=== PATIENT | female | born 1945 | race Caucasian/White ===

== ENCOUNTER 2016-07-01 09:42 | Day surgery (SDC) | payer BC ==
[2016-07-01] MEDS ORDERED: TROPICAMIDE 1% OPHTH 2 ML DROPS OPTH ONE (10:00)
[2016-07-01] MEDS ORDERED: CYCLOPENTOLATE 1% OPHTH DROPS 2 ML OPTH ONE (10:00)
[2016-07-01] MEDS ORDERED: LIDOCAINE-MPF 2% 5 ML VIAL IM ONE (10:00)
[2016-07-01] MEDS ORDERED: KETOROLAC 0.45% OPHTH DROPS OPTH ONE (10:00)
[2016-07-01] MEDS ORDERED: MIDAZOLAM 2 MG/2 ML VIAL IVP ONE (10:00)
[2016-07-01] MEDS ORDERED: PROPOFOL 200 MG/20 ML VIAL IVP ONE (10:00)
[2016-07-01] MEDS ORDERED: LACTATED RINGERS 500 ML IV ONE (10:37)
[2016-07-01] MEDS ORDERED: levoFLOXacin 0.5% OPHTH DROPS 5 ML OPTH ONE (10:43)
[2016-07-01] MEDS ORDERED: PROPARACAINE 0.5% OPHTH DROPS 15 ML OPTH ONE (10:43)
[2016-07-01] MEDS ORDERED: BRIMONIDINE 0.2% OPHTH DROPS 5 ML OPTH ONE (10:43)
[2016-07-01] MEDS ORDERED: EPINEPHrine 1 MG/ML AMP IO ONE (10:43)
[2016-07-01] MEDS ORDERED: BSS/LIDOCAINE/EPINEPHRINE 1 ML SYRINGE IO ONE ×2 (10:43→10:48)
[2016-07-01] MEDS ORDERED: CHONDR SULF/HYALURONATE SYRINGE IO ONE (10:43)
== END 2016-07-01 09:43 | disposition home or self-care (01) ==
PROC: 08RJ3JZ Replacement of Right Lens with Synthetic Substitute, Percutaneous Approach (ICD-10-PCS; principal; 2016-07-01 10:50)
DX: H25.11 Age-related nuclear cataract, right eye (principal); J45.909 Unspecified asthma, uncomplicated; E11.9 Type 2 diabetes mellitus without complications; I10 Essential (primary) hypertension; Z86.718 Personal history of other venous thrombosis and embolism; F41.0 Panic disorder [episodic paroxysmal anxiety]
CPT/HCPCS: 66984; V2632; V2787

== ENCOUNTER 2016-08-05 06:14 | Day surgery (SDC) | payer BC ==
[2016-08-05] MEDS ORDERED: CYCLOPENTOLATE 1% OPHTH DROPS 2 ML OPTH ONE (06:40)
[2016-08-05] MEDS ORDERED: TROPICAMIDE 1% OPHTH 2 ML DROPS OPTH ONE (06:40)
[2016-08-05] MEDS ORDERED: KETOROLAC 0.45% OPHTH DROPS OPTH ONE (06:40)
[2016-08-05] MEDS ORDERED: LACTATED RINGERS 500 ML IV ONE (06:49)
[2016-08-05] MEDS ORDERED: MIDAZOLAM 2 MG/2 ML VIAL IVP ONE (07:40)
[2016-08-05] MEDS ORDERED: EPINEPHrine 1 MG/ML AMP IO ONE (07:53)
[2016-08-05] MEDS ORDERED: TETRACAINE 0.5% OPHTH DROPS 4 ML OPTH ONE (07:53)
[2016-08-05] MEDS ORDERED: BRIMONIDINE 0.2% OPHTH DROPS 5 ML OPTH ONE (07:53)
[2016-08-05] MEDS ORDERED: levoFLOXacin 0.5% OPHTH DROPS 5 ML OPTH ONE (07:53)
[2016-08-05] MEDS ORDERED: PROPARACAINE 0.5% OPHTH DROPS 15 ML OPTH ONE (07:53)
[2016-08-05] MEDS ORDERED: BSS/LIDOCAINE/EPINEPHRINE 1 ML SYRINGE IO ONE (07:54)
[2016-08-05] MEDS ORDERED: CHONDR SULF/HYALURONATE SYRINGE IO ONE (07:54)
== END 2016-08-05 06:15 | disposition home or self-care (01) ==
PROC: 08RK3JZ Replacement of Left Lens with Synthetic Substitute, Percutaneous Approach (ICD-10-PCS; principal; 2016-08-05 07:30)
DX: H25.12 Age-related nuclear cataract, left eye (principal); I10 Essential (primary) hypertension; J45.909 Unspecified asthma, uncomplicated; Z86.718 Personal history of other venous thrombosis and embolism
CPT/HCPCS: 66984; V2632; V2787

== ENCOUNTER 2016-10-28 09:49 | Outpatient (CLI) | payer BC ==
[2016-10-28 10:55] LABS: CALCIUM 9.5 mg/dL (8.5-10.3); CREATININE 0.9 mg/dL (0.4-1.0); MAGNESIUM 2.1 mg/dL (1.7-2.8)
== END 2016-10-28 09:50 | disposition home or self-care (01) ==
LOC: LAB 09:49
PROVIDERS: ATTEND Internal Medicine
DX: Z86.718 Personal history of other venous thrombosis and embolism (principal)
CPT/HCPCS: 36415; 80048; 83735; 85379

== ENCOUNTER 2016-10-29 09:26 | Outpatient (CLI) | payer BC ==
--- NOTE | 2016-10-29 10:49 | Ultrasound Report ---
BILATERAL LOWER EXTREMITY VENOUS DUPLEX: 10/29/2016 CLINICAL INDICATION: Positive D-dimer, history of DVT. TECHNIQUE: Real-time sonographic vascular imaging was performed by the electricity trading analyst through both lower extremities utilizing both color flow and Doppler spectral analysis. Multiple mortician supplies sales representative static images were saved for review. FINDINGS: A bilateral lower extremity venous sonogram is performed revealing the common femoral, supe rficial femoral, profunda femoris, and popliteal veins to be adequately visualized without intralumin al defects. There is normal venous compression, augmentation, phasicity, and spontaneity of venous fl ow. In the calf, the visualized more cephalad portions of posterior tibial and peroneal veins are gr ossly compressible, without filling defects. IMPRESSION: NO EVIDENCE OF DEEP VENOUS THROMBOSIS. JOB #: [id number] EXT JOB #:[id number]
== END 2016-10-29 09:27 | disposition home or self-care (01) ==
LOC: DI 09:26
PROVIDERS: ATTEND Internal Medicine
DX: R78.89 Finding of other specified substances, not normally found in blood (principal); Z86.718 Personal history of other venous thrombosis and embolism
CPT/HCPCS: 93970

== ENCOUNTER 2016-11-11 13:52 | Emergency (ER) | payer BC ==
--- NOTE | 2016-11-11 14:15 | ED Physician Documentation ---
PD HPI HEENT - Stated complaint Stated Complaint: SOA/ALLERGIC REACTION - Chief complaint Chief Complaint: Allergic Rx - History obtained from History obtained from: Patient - History of Present Illness Timing - onset: How many hours ago (last couple of hours), Today Timing - duration: Hours Timing - details: Abrupt onset, Still present, Constant (had onset of feeling sore on right side of tongue, with feeling of swelling of tongue and tightness in throat, where she could not swallow saliva and was having trouble breathing. She had dental crown placed 2 days ago without problems. No local anesth and was not Rx any meds/abx.) Location: Throat, Tooth (some pain at tooth that had crown, but not worse than post procedure. Having tenderness of right tongue.) Worsens: Swalllowing Associated symptoms: Unable to swallow. No: Fever, Congestion, Trismus, Swollen nodes, Facial swelling Similar symptoms before: Has not had sx before (she has had allergic reactions that present as syncope and dyspnea. No prior problems with feeling tongue/ throoat swelling. Sees wardrobe coordinator in [place] and is treated as Mast Cell activation dysfunction. No recent change in meds. She states she gets irritable on steroids PRednisone when higher dose or prolonged. Has done okay with Prednisolone.) Recently seen: Clinic (dentist, 2 days ago, wt crown placed right lower molar. ) Review of Systems Constitutional: denies: Fever, Chills Nose: denies: Rhinorrhea / runny nose, Congestion Throat: denies: Sore throat Cardiac: denies: Chest pain / pressure Respiratory: reports: Dyspnea. 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 - Past Surgical History Past Surgical History: Yes General: Colonoscopy HEENT: Tonsil/Adenoidectomy - Present Medications Home Medications: Ambulatory Orders Medication Instructions Recorded Confirmed Calcium Carbonate/Vitamin D3 1 tab PO DAILY 12/26/12 11/11/16 [Calcium + Vitamin D Tablet] Famotidine [Pepcid] 40 mg PO DAILY 12/26/12 11/11/16 Methyl-B12/l-Mefolate/B6 Phos 1 tab PO DAILY 12/26/12 11/11/16 [Metanx Tablet] Sitagliptin Phosphate [Januvia] 100 mg PO DAILY 12/26/12 11/11/16 Alprazolam [Xanax] 1 - 2 tab PO QPM PRN 06/05/13 11/11/16 Amlodipine Besylate 5 mg PO DAILY 06/30/16 11/11/16 Losartan [Cozaar] 50 mg PO BID 06/30/16 11/11/16 Aspirin 1 tab DAILY 11/11/16 11/11/16 Cannabis Cbd PRN 11/11/16 Cromolyn Sodium [Gastrocrom] 10 ml QID 11/11/16 11/11/16 Dexamethasone [Decadron] 4 mg PO DAILY #5 tablet 11/11/16 Fexofenadine HCl [Pauline Allergy] 180 mg DAILY 11/11/16 11/11/16 Ketotifen 2 Pills Daily 11/11/16 Multivitamin [Multivitamins] 1 tab DAILY 11/11/16 11/11/16 Omeprazole [PriLOSEC] 40 mg BID 11/11/16 11/11/16 PrednisoLONE [Prelone] 15 mg PO BID #50 ml 11/11/16 Sulindac 150 mg BID PRN 11/11/16 11/11/16 - Allergies Allergies/Adverse Reactions: Allergies Allergy/AdvReac Type Severity Reaction Status Date / Time amoxicillin [Amoxicillin] Allergy Intermediate Respiratory Verified 12/26/12 13: 54 Beta-Blockers Allergy Intermediate Respiratory Verified 12/26/12 13:54 (Beta-Adrenergic Bloc guaifenesin [From Humibid] Allergy Intermediate Respiratory Verified 12/26/12 13 :54 Penicillins Allergy Intermediate Respiratory Verified 12/26/12 13:54 prednisone Allergy Intermediate Respiratory Verified 12/26/12 13:54 Sulfa (Sulfonamide Allergy Intermediate Respiratory Verified 12/26/12 13:54 Antibiotics) tetracaine Allergy Intermediate Respiratory Verified 12/26/12 13:54 tetracycline [Tetracycline] Allergy Intermediate Respiratory Verified 12/26/12 13:54 tramadol HCl * [From Ultram] Allergy Intermediate Respiratory Verified 12/26/12 13:54 fluoxetine HCl * Allergy Mild Respiratory Verified 12/26/12 13:54 [From Prozac] budesonide Allergy Unknown Verified 11/11/16 14:25 bupropion HCl * Allergy Unknown Verified 11/11/16 14:25 [From Wellbutrin] ciclesonide [From Omnaris] Allergy Unknown Verified 11/11/16 14:25 clonidine Allergy Unknown Verified 11/11/16 14:25 hydrocortisone Allergy Unknown Verified 11/11/16 14:25 methylprednisolone Allergy Unknown Verified 11/11/16 14:25 [From Medrol] terazosin Allergy Unknown Verified 11/11/16 14:25 amitriptyline HCl * AdvReac Unknown Verified 11/11/16 14:19 [From Elavil] gabapentin [From Neurontin] AdvReac Unknown Verified 11/11/16 14:19 nortriptyline AdvReac Unknown Verified 11/11/16 14:20 2-bromo-2 nitropropane Allergy Unknown Uncoded 11/11/16 14:29 acrylics Allergy Unknown Uncoded 11/11/16 14:29 balsam donald Allergy Unknown Uncoded 11/11/16 14:29 glyceryl thioglycolate Allergy Unknown Uncoded 11/11/16 14:29 HRT Allergy Unknown Uncoded 11/11/16 14:25 iodopropynyl butyl carbamate Allergy Unknown Uncoded 11/11/16 14:29 rolo Allergy Unknown Uncoded 11/11/16 14:29 sulfate Allergy Unknown Uncoded 11/11/16 14:29 bellamine AdvReac Unknown Uncoded 11/11/16 14:19 - Social History Does the pt smoke?: No Smoking Status: Former smoker Does the pt drink ETOH?: Yes - Immunizations Immunizations are current?: Yes - POLST Patient has POLST: No PD ED PE NORMAL - Vitals Vital signs reviewed: Yes - General General: Alert and oriented X 3, Well developed/nourished, Other (seems slightly anxious, but due to feeling of some swelling of throat. She is able to talk clearly and does not have any hoarseness nor stridor. 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 ) - HEENT HEENT: Atraumatic, Pharynx benign (i do not see obvious swelling of tongue, lips , uvula nor pallate. There is mild redness and moderate tenderness right side of tongue. Gumline around dental work is without swelling. ) - Neck Neck: Supple, no meningeal sign, No adenopathy, Other (sbumandibular area without swelling, fullness, nodes. ) - Cardiac Cardiac: RRR (mild tachycardia), No murmur - Respiratory Respiratory: Clear bilaterally - Abdomen Abdomen: Soft, Non tender - Derm Derm: Normal color, Warm and dry - Neuro Neuro: Alert and oriented X 3, No motor deficit, Normal speech Results - Vitals Vitals: Vital Signs - 24 hr 11/11/16 11/11/16 13:59 15:10 Temperature 36.7 C Heart Rate 101 H 127 H Respiratory 20 18 Rate Blood Pressure 145/53 H 117/72 O2 Saturation 100 95 Oxygen O2 Source Room air - Labs Labs: Laboratory Tests 11/11/16 11/11/16 14:34 14:34 WBC 11.5 H RBC 4.72 Hgb 14.0 Hct 40.9 MCV 86.5 MCH 29.6 MCHC 34.2 RDW 13.4 Plt Count 233 MPV 8.3 Neut # 7.3 H Lymph # 3.4 Glenn # 0.6 Eos # 0.1 Baso # 0.2 H Absolute Nucleated RBC 0.00 Nucleated RBCs 0.0 Sodium 136 Potassium 3.8 Chloride 101 Carbon Dioxide 25 Anion Gap 10.0 BUN 21 H Creatinine 0.8 Estimated GFR (MDRD) 71 L Glucose 107 H Calcium 9.4 Total Bilirubin 0.5 AST 15 ALT 16 Alkaline Phosphatase 77 Total Protein 7.4 Albumin 4.2 Globulin 3.2 Albumin/Globulin Ratio 1.3 Lipase 35 PD MEDICAL DECISION MAKING - ED course Complexity details: re-evaluated patient (she is feeling improved after steroids and Benadryl, particularly feeling the liquid benadryl did benefit by numbing sore area of tongue. I wonder if she is just having local irritation from the dentistry work. Does not appear infected gums and no fullness of submandibular space. ), considered differential, d/w patient, d/w clinical application consultant ( [place], Assistant Producer in [place], who was familiar with the patient and said that tests they had done suggest the patient does not have mast cell activation problem, but he treats her with the meds as she does seem to do better with them. For current symptoms, he would be satisfied that there is not demonstrable swelling of mucosa on my exam and suggests short course steroids plus Benadryl. ) Departure - Departure Disposition: 01 Home, Self Care Clinical Impression: Mouth swelling Allergic reaction Qualifiers: Encounter type: initial encounter Qualified Code(s): T78.40XA - Allergy, unspecified, initial encounter Condition: Stable Record reviewed to determine appropriate education?: Yes Instructions: ED Allergic Reaction Local Other Follow-Up: Cyn Bustos MD [Primary Care Provider] - Chace Coppola MD [Physician No Access] - Prescriptions: Dexamethasone [Decadron] 4 mg PO DAILY #5 tablet PrednisoLONE [Prelone] 15 mg PO BID #50 ml Comments: Continue usual medications. Orally, use 5 ml of the Prelone steroid along with 10 ml of Benadryl liquid, rinse well in mouth around sore area and hold for a minute, then spit out. Do this twice daily. You can use the Benadryl liquid other times as well as needed for discomfort. You can also take Decadron tablet daily for 5 more days if it feels like the reaction is continuing. Recheck if not improving over the next few days, sooner if worse. Discharge Date/Time: 11/11/16 15:30
[2016-11-11] MEDS ORDERED: diphenhydrAMINE ELIXIR 25 MG/10 ML UDC PO STA (14:16)
[2016-11-11] MEDS ORDERED: SODIUM CHLORIDE 0.9% 1,000 ML IV ONE (14:17)
[2016-11-11] MEDS ORDERED: DEXAMETHASONE 10 MG/ML VIAL IVP STA (14:17)
[2016-11-11] MEDS ORDERED: diphenhydrAMINE ELIXIR 25 MG/10 ML UDC PO ONE (14:17)
[2016-11-11] MEDS ORDERED: DEXAMETHASONE 10 MG/ML VIAL ONE (14:20)
[2016-11-11] MEDS ORDERED: LORazepam 2 MG/ML SYRINGE IVP STA (14:22)
[2016-11-11] MEDS ORDERED: LORazepam 2 MG/ML SYRINGE ONE (14:36)
[2016-11-11 14:46] LABS: BASOPHILS # (AUTO) 0.2 10^3/uL (0.0-0.1); BASOPHILS % (AUTO) 1.3 %; EOSINOPHILS # (AUTO) 0.1 10^3/uL (0.0-0.7); EOSINOPHILS % (AUTO) 0.9 %; HCT - HEMATOCRIT 40.9 % (37.0-47.0); LYMPHOCYTES # (AUTO) 3.4 10^3/uL (1.5-3.5); LYMPHOCYTES % (AUTO) 29.2 %; MEAN CORPUSCULAR HEMOGLOBIN 29.6 pg (27.0-31.0); MEAN CORPUSCULAR HGB CONC 34.2 g/dL (32.0-36.0); MEAN CORPUSCULAR VOLUME 86.5 fL (81.0-99.0); MEAN PLATELET VOLUME 8.3 fL (7.9-10.8); MONOCYTES # (AUTO) 0.6 10^3/uL (0.0-1.0); MONOCYTES % (AUTO) 5.3 %; NEUTROPHILS # (AUTO) 7.3 10^3/uL (1.5-6.6); NEUTROPHILS % (AUTO) 63.3 %; RED BLOOD COUNT 4.72 10^6/uL (4.20-5.40); RED CELL DISTRIBUTION WIDTH 13.4 % (12.0-15.0); UNCORRECTED WHITE BLOOD COUNT 11.5 x10^3/uL; WHITE BLOOD COUNT 11.5 x10^3/uL (4.8-10.8)
[2016-11-11 14:55] LABS: ALBUMIN/GLOBULIN RATIO 1.3 (1.0-2.2); BILIRUBIN,TOTAL 0.5 mg/dL (0.2-1.0); CALCIUM 9.4 mg/dL (8.5-10.3); CREATININE 0.8 mg/dL (0.4-1.0); POTASSIUM 3.8 mmol/L (3.5-5.0); TOTAL PROTEIN 7.4 g/dL (6.7-8.2)
[2016-11-11] MEDS ORDERED: ALPRAZolam 0.25 MG TABLET PO STA (15:02)
[2016-11-11 15:10] VITALS: BP 117/72
== END 2016-11-11 15:30 | disposition home or self-care (01) ==
LOC: ED 13:52
DX: R22.0 Localized swelling, mass and lump, head (principal); T78.40XA Allergy, unspecified, initial encounter; X58.XXXA Exposure to other specified factors, initial encounter; D89.40 Mast cell activation, unspecified; Z98.811 Dental restoration status; I10 Essential (primary) hypertension; E11.9 Type 2 diabetes mellitus without complications; Z79.84 Long term (current) use of oral hypoglycemic drugs; Z86.718 Personal history of other venous thrombosis and embolism; Z79.82 Long term (current) use of aspirin; Z87.891 Personal history of nicotine dependence
CPT/HCPCS: 36415; 80053; 83690; 85025; 96361; 96374; 99283; A9270

== ENCOUNTER 2016-12-09 10:03 | Outpatient (CLI) | payer BC ==
[2016-12-09 10:36] LABS: BASOPHILS # (AUTO) 0.1 10^3/uL (0.0-0.1); EOSINOPHILS # (AUTO) 0.1 10^3/uL (0.0-0.7); EOSINOPHILS % (AUTO) 1.5 %; HCT - HEMATOCRIT 42.9 % (37.0-47.0); HGB - HEMOGLOBIN 14.4 g/dL (12.0-16.0); LYMPHOCYTES % (AUTO) 34.3 %; MEAN CORPUSCULAR HEMOGLOBIN 29.3 pg (27.0-31.0); MEAN CORPUSCULAR HGB CONC 33.6 g/dL (32.0-36.0); MEAN CORPUSCULAR VOLUME 87.2 fL (81.0-99.0); MEAN PLATELET VOLUME 7.8 fL (7.9-10.8); MONOCYTES # (AUTO) 0.5 10^3/uL (0.0-1.0); MONOCYTES % (AUTO) 6.3 %; NEUTROPHILS % (AUTO) 56.9 %; RED BLOOD COUNT 4.92 10^6/uL (4.20-5.40); RED CELL DISTRIBUTION WIDTH 13.7 % (12.0-15.0); UNCORRECTED WHITE BLOOD COUNT 8.7 x10^3/uL; WHITE BLOOD COUNT 8.7 x10^3/uL (4.8-10.8)
[2016-12-09 10:53] LABS: ALBUMIN/GLOBULIN RATIO 1.3 (1.0-2.2); BILIRUBIN,TOTAL 0.9 mg/dL (0.2-1.0); BUN - BLOOD UREA NITROGEN 31 mg/dL (6-20); CALCIUM 9.5 mg/dL (8.5-10.3); CARBON DIOXIDE - CO2 27 mmol/L (21-32); CHLORIDE 102 mmol/L (101-111); CHOL/HDL RATIO 3.5 (<4.4); CHOLESTEROL 277 mg/dL; CREATININE 0.9 mg/dL (0.4-1.0); GFR - MDRD 62 (>89); GLUCOSE 128 mg/dL (70-100); HDL CHOLESTEROL 79 mg/dL; LDL/HDL RATIO 2.2 (<4.4); POTASSIUM 4.1 mmol/L (3.5-5.0); SODIUM 138 mmol/L (135-145); TOTAL PROTEIN 7.6 g/dL (6.7-8.2); TRIGLYCERIDES 119 mg/dL; VLDL CHOLESTEROL 24 mg/dL
[2016-12-09 10:54] LABS: HEMOGLOBIN A1C 0.78 g/dL
[2016-12-09 11:57] LABS: THYROID STIMULATING HORMONE 1.99 uIU/mL (0.34-5.60)
== END 2016-12-09 10:04 | disposition home or self-care (01) ==
LOC: LAB 10:03
PROVIDERS: ATTEND Internal Medicine
DX: I10 Essential (primary) hypertension (principal); R20.0 Anesthesia of skin; J45.909 Unspecified asthma, uncomplicated; E11.40 Type 2 diabetes mellitus with diabetic neuropathy, unspecified; Q82.2 Congenital cutaneous mastocytosis; I82.7 Chronic embolism and thrombosis of veins of upper extremity; E67.2 Megavitamin-B6 syndrome; Z79.899 Other long term (current) drug therapy
CPT/HCPCS: 36415; 80053; 80061; 82607; 83036; 84207; 84443; 85025

== ENCOUNTER 2016-12-14 12:03 | Outpatient (CLI) | payer BC ==
--- NOTE | 2016-12-14 17:34 | XRAY Report ---
LEFT WRIST THREE VIEWS: 12/14/2016 CLINICAL HISTORY: Wrist pain after falling on her outstretched hand. FINDINGS: Mild soft tissue swelling is noted along the radial aspect of the left wrist. Minimal undu lation is noted in the radial cortex of the distal left radius immediately proximal to the radial sty loid process. This most likely is the result of an old injury. Moderate degree of osteoarthritis is n oted at the articulation between the base of the 1st metacarpal and trapezium and between the trapezi um and navicular bone. Moderate degree of joint space narrowing is seen at these articulations. Mild spurring is noted along the radial aspect of the distal navicular bone. A small chip fracture is seen adjacent to the base of the 1st metacarpal. Minimal narrowing is noted at the radioulnar joint. IMPRESSION: 1. NO ACUTE ABNORMALITY. 2. MODERATE DEGREE OF OSTEOARTHRITIS IS SEEN AT THE ARTICULATION BETWEEN THE BASE OF THE 1ST METACARP AL AND TRAPEZIUM AND BETWEEN THE TRAPEZIUM AND NAVICULAR BONE. JOB #: [id number] EXT JOB #:[id number]
== END 2016-12-14 12:04 | disposition home or self-care (01) ==
LOC: DI 12:03
PROVIDERS: ATTEND Internal Medicine
DX: M19.032 Primary osteoarthritis, left wrist (principal)

== ENCOUNTER 2016-12-21 08:51 | Outpatient (CLI) | payer BC ==
--- NOTE | 2016-12-21 10:49 | Ultrasound Report ---
PELVIC ULTRASOUND: 12/21/2016 CLINICAL INDICATION: Ovarian cyst followup. COMPARISON: CT of 03/20/2013, ultrasound of 03/24/2011. TECHNIQUE: Transabdominal pelvic ultrasound performed for global evaluation. Transvaginal pelvic ultrasound performed for detailed evaluation. Real-time scanning performed and static images obtained. FINDINGS: The uterus is retroverted, measuring 6.1 x 3.9 x 2.0 cm. The endometrial echo complex measures 3 mm. No focal myometrial lesion is present. The right ovary measures 1.9 x 1.4 x 1.3 cm, and appears unremarkable. The left ovary measures 4.3 x 2.7 x 2.7 cm, and again contains a septated 3.8 x 3.6 x 2.6 cm cyst. No free fluid is present. IMPRESSION: PERSISTENT SEPTATED LEFT OVARIAN CYST, NOW MEASURING 3.8 CM. JOB #: [id number] EXT JOB #: [id number] [facility]
== END 2016-12-21 08:52 | disposition home or self-care (01) ==
LOC: DI 08:51
PROVIDERS: ATTEND Internal Medicine
DX: N83.202 Unspecified ovarian cyst, left side (principal)
CPT/HCPCS: 76830; 76856; 84207

== ENCOUNTER 2016-12-21 08:53 | Outpatient (CLI) | payer BC ==
--- NOTE | 2016-12-22 17:46 | Mammography Report ---
DIGITAL SCREENING MAMMOGRAM: 12/21/2016 CLINICAL INDICATION: A 71-year-old with history of late childbearing for screening. COMPARISON: 11/2015, 10/2014, 05/2013, 05/2012, 04/2011, 04/2010, 04/2009, 04/2008, 04/2007. TECHNIQUE: Routine CC and MLO projections were obtained of the breasts. FINDINGS: Scattered fibroglandular tissue is present within the breasts. There are no dominant pam s, suspicious microcalcifications, or secondary signs of malignancy. In comparison to the previous st udies, there are no significant changes. ASSESSMENT: NO MAMMOGRAPHIC EVIDENCE OF MALIGNANCY. NO SIGNIFICANT INTERVAL CHANGES. RECOMMENDATION: Screening mammography is recommended annually. BI-RADS category 1 - negative. STANDARD QUALIFYING STATEMENTS 1. This examination was reviewed with the aid of Computed-Aided Detection (CAD). 2. A negative or benign imaging report should not delay biopsy if clinically suspicious findings are present. Consider surgical consultation if warranted. More than 5% of cancers are not identified by i maging. 3. Dense breasts may obscure an underlying neoplasm. JOB #: [id number] EXT JOB #:[id number]
== END 2016-12-21 08:54 | disposition home or self-care (01) ==
LOC: DI 08:53
PROVIDERS: ATTEND Internal Medicine
DX: Z12.31 Encounter for screening mammogram for malignant neoplasm of breast (principal)
CPT/HCPCS: 77067

== ENCOUNTER 2017-01-06 09:55 | Outpatient (CLI) | payer BC | END 2017-01-06 09:56 | disposition home or self-care (01) | LOC: LAB 09:55 | PROVIDERS: ATTEND Internal Medicine | DX: N83.209 Unspecified ovarian cyst, unspecified side (principal); R41.3 Other amnesia; R53.83 Other fatigue; J45.909 Unspecified asthma, uncomplicated; K21.9 Gastro-esophageal reflux disease without esophagitis; Z86.010 Personal history of colon polyps; E11.40 Type 2 diabetes mellitus with diabetic neuropathy, unspecified; Q82.2 Congenital cutaneous mastocytosis; I82.7 Chronic embolism and thrombosis of veins of upper extremity; Z79.899 Other long term (current) drug therapy; I10 Essential (primary) hypertension | CPT/HCPCS: 36415; 84207; 86304 ==

== ENCOUNTER 2017-01-26 09:07 | Emergency (ER) | payer BC ==
--- NOTE | 2017-01-26 11:43 | ED Physician Documentation ---
PD HPI HEAD INJURY - Stated complaint Stated Complaint: HEAD INJ - Chief complaint Chief Complaint: Neuro - History obtained from History obtained from: Patient - History of Present Illness Mechanism of head injury: Blow (a tree branch struck her on top of head as she/ were cutting branches. Had pain on top of head. Today feeling pain in head, neck, and feels some dizziness/ lightheaded.) Where head injury occurred: Home Timing - onset: Yesterday Location of injury: Top Quality of pain: Pain, Aching Associated symptoms: Neck pain, Other (some dizziness and lightheaded today). No: LOC, AMS, Nausea / vomiting Symptoms worsen with: Palpation, Movement Contributing factors: No: Anticoagulated, Intoxicated Similar symptoms before: Has not had sx before Recently seen: Not recently seen Review of Systems Constitutional: denies: Fever, Chills Eyes: denies: Loss of vision Nose: denies: Rhinorrhea / runny nose, Congestion Throat: denies: Sore throat Cardiac: denies: Chest pain / pressure Respiratory: denies: Dyspnea, Cough GI: denies: Abdominal Pain, Nausea, Vomiting : denies: Dysuria, Frequency Neurologic: reports: Confused (mildly today). 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 : None HEENT: None Psych: Panic attacks Musculoskeletal: Fibromyalgia Derm: None - Past Surgical History Past Surgical History: Yes General: Colonoscopy HEENT: Tonsil/Adenoidectomy - Present Medications Home Medications: Ambulatory Orders Medication Instructions Recorded Confirmed Calcium Carbonate/Vitamin D3 1 tab PO DAILY 12/26/12 11/11/16 [Calcium + Vitamin D Tablet] Famotidine [Pepcid] 40 mg PO DAILY 12/26/12 11/11/16 Methyl-B12/l-Mefolate/B6 Phos 1 tab PO DAILY 12/26/12 11/11/16 [Metanx Tablet] Sitagliptin Phosphate [Januvia] 100 mg PO DAILY 12/26/12 11/11/16 Alprazolam [Xanax] 1 - 2 tab PO QPM PRN 06/05/13 11/11/16 Amlodipine Besylate 5 mg PO DAILY 06/30/16 11/11/16 Losartan [Cozaar] 50 mg PO BID 06/30/16 11/11/16 Aspirin 1 tab DAILY 11/11/16 11/11/16 Cannabis Cbd PRN 11/11/16 Cromolyn Sodium [Gastrocrom] 10 ml QID 11/11/16 11/11/16 Dexamethasone [Decadron] 4 mg PO DAILY #5 tablet 11/11/16 Fexofenadine HCl [Pauline Allergy] 180 mg DAILY 11/11/16 11/11/16 Ketotifen 2 Pills Daily 1 tab PO BID 11/11/16 01/26/17 Multivitamin [Multivitamins] 1 tab DAILY 11/11/16 11/11/16 Omeprazole [PriLOSEC] 40 mg BID 11/11/16 11/11/16 PrednisoLONE [Prelone] 15 mg PO BID #50 ml 11/11/16 Sulindac 150 mg BID PRN 11/11/16 11/11/16 - Allergies Allergies/Adverse Reactions: Allergies Allergy/AdvReac Type Severity Reaction Status Date / Time amoxicillin [Amoxicillin] Allergy Intermediate Respiratory Verified 01/26/17 09: 25 Beta-Blockers Allergy Intermediate Respiratory Verified 01/26/17 09:25 (Beta-Adrenergic Bloc guaifenesin [From Humibid] Allergy Intermediate Respiratory Verified 01/26/17 09 :25 Penicillins Allergy Intermediate Respiratory Verified 01/26/17 09:25 prednisone Allergy Intermediate Respiratory Verified 01/26/17 09:25 Sulfa (Sulfonamide Allergy Intermediate Respiratory Verified 01/26/17 09:25 Antibiotics) tetracaine Allergy Intermediate Respiratory Verified 01/26/17 09:25 tetracycline [Tetracycline] Allergy Intermediate Respiratory Verified 01/26/17 09:25 tramadol HCl * [From Ultram] Allergy Intermediate Respiratory Verified 01/26/17 09:25 fluoxetine HCl * Allergy Mild Respiratory Verified 01/26/17 09:25 [From Prozac] budesonide Allergy Unknown Verified 01/26/17 09:25 bupropion HCl * Allergy Unknown Verified 01/26/17 09:25 [From Wellbutrin] ciclesonide [From Omnaris] Allergy Unknown Verified 01/26/17 09:25 clonidine Allergy Unknown Verified 01/26/17 09:25 hydrocortisone Allergy Unknown Verified 01/26/17 09:25 latex Allergy Rash Verified 01/26/17 09:26 Latex, Natural Rubber Allergy Rash Verified 01/26/17 09:26 methylprednisolone Allergy Unknown Verified 01/26/17 09:25 [From Medrol] terazosin Allergy Unknown Verified 01/26/17 09:25 amitriptyline HCl * AdvReac Unknown Verified 01/26/17 09:25 [From Elavil] gabapentin [From Neurontin] AdvReac Unknown Verified 01/26/17 09:25 nortriptyline AdvReac Unknown Verified 01/26/17 09:25 2-bromo-2 nitropropane Allergy Unknown Uncoded 01/26/17 09:25 acrylics Allergy Unknown Uncoded 01/26/17 09:25 balsam donald Allergy Unknown Uncoded 01/26/17 09:25 glyceryl thioglycolate Allergy Unknown Uncoded 01/26/17 09:25 HRT Allergy Unknown Uncoded 01/26/17 09:25 iodopropynyl butyl carbamate Allergy Unknown Uncoded 01/26/17 09:25 rolo Allergy Unknown Uncoded 01/26/17 09:25 sulfate Allergy Unknown Uncoded 01/26/17 09:25 bellamine AdvReac Unknown Uncoded 01/26/17 09:25 - Social History Does the pt smoke?: No Smoking Status: Former smoker Does the pt drink ETOH?: Yes - Immunizations Immunizations are current?: Yes - POLST Patient has POLST: No PD ED PE NORMAL - Vitals Vital signs reviewed: Yes - General General: Alert and oriented X 3, Well developed/nourished - HEENT HEENT: Other (mild tenderness top of head. No laceration. ) - Neck Neck: Supple, no meningeal sign, No adenopathy, Other (muscular tenderness in neck, with mild tender midline lower cervical. ) - Cardiac Cardiac: RRR, No murmur - Respiratory Respiratory: Clear bilaterally - Derm Derm: Normal color, Warm and dry - Neuro Neuro: Alert and oriented X 3, clinic physician 2-12 intact, No motor deficit, No sensory deficit, Normal speech, Other Results - Vitals Vitals: Vital Signs - 24 hr 01/26/17 12:29 Heart Rate 84 Respiratory 18 Rate Blood Pressure 133/89 H O2 Saturation 98 Oxygen O2 Source Room air - Labs Labs: Laboratory Tests 01/26/17 11:12 POC Whole Bld Glucose 178 H - Rads (name of study) head and neck CT Radiology: Prelim report reviewed, EMP read contemporaneously (normal) PD MEDICAL DECISION MAKING - ED course Complexity details: reviewed results, considered differential (seems low risk for ICH nor fracture, but has symptoms enough to assess. CTs done and appear okay. ), d/w patient Departure - Departure Disposition: 01 Home, Self Care Clinical Impression: Head contusion Qualifiers: Encounter type: initial encounter Contusion of head detail: scalp Qualified Code(s): S00.03XA - Contusion of scalp, initial encounter Mild concussion Qualifiers: Encounter type: initial encounter Loss of consciousness presence/duration: without LOC Qualified Code(s): S06.0X0A - Concussion without loss of consciousness, initial encounter Cervical muscle strain Qualifiers: Encounter type: initial encounter Qualified Code(s): S16.1XXA - Strain of muscle, fascia and tendon at neck level, initial encounter Condition: Stable Record reviewed to determine appropriate education?: Yes Instructions: ED Sprain Strain Neck, ED Concussion Follow-Up: Cyn Bustos MD [Primary Care Provider] - Comments: Activity as able based on symptoms. No vigorous activity until the dizziness and headache are improved. Tylenol if needed for pains. Meclizine is good for the dizziness symptoms. Recheck if not improved over the next several days. Discharge Date/Time: 01/26/17 13:39
[2017-01-26 12:30] VITALS: BP 133/89
--- NOTE | 2017-01-26 13:05 | CT Preliminary Report ---
Exam: CT Head W/O IMPRESSION: Negative nonenhanced head CT. [facility] SITE ID: [id number]
--- NOTE | 2017-01-26 13:08 | CT Report ---
EXAM: CT HEAD EXAM DATE: 01/26/2017 12:46 PM. CLINICAL HISTORY: Struck on head with tree branch. COMPARISON: None. TECHNIQUE: Multiaxial CT images were obtained from the foramen magnum to the vertex. IV contrast: Non e. Reformats: Coronal. In accordance with CT protocol optimization, one or more of the following dose reduction techniques w ere utilized for this exam: automated exposure control, adjustment of mA and/or KV based on patient s ize, or use of iterative reconstructive technique. FINDINGS: Parenchyma: No intraparenchymal hemorrhage. No evidence of mass, midline shift, or CT findings of inf arction. Morillo-white differentiation is distinct. Extraaxial Spaces: Normal for age. No subdural or epidural collections identified. Ventricles: Normal in size and position. Sinuses: Imaged paranasal sinuses, orbits, and mastoids show no significant abnormality. Bones: No evidence of fracture or calvarial defect. Other: None. IMPRESSION: Negative nonenhanced head CT. [facility] Referring Provider Line: [phone] SITE ID: [id number]
[2017-01-26] MEDS ORDERED: ACETAMINOPHEN 325 MG TABLET PO STA (13:10)
--- NOTE | 2017-01-26 13:13 | CT Preliminary Report ---
Exam: CT Cervical Spine W/O IMPRESSION: 1. Negative for fracture and subluxation of cervical spine. 2. Moderate chronic degenerative disk disease at C5-C6 and C6-C7. [facility] SITE ID: [id number]
--- NOTE | 2017-01-26 13:15 | CT Report ---
EXAM: CT CERVICAL SPINE WITHOUT CONTRAST DATE: 01/26/2017 12:55 PM HISTORY: Struck on head with tree branch. COMPARISONS: None. TECHNIQUE: Thin-section axial images were acquired of the cervical spine without contrast. Post-proce ssing: Coronal and sagittal reformats. Other: None. In accordance with CT protocol optimization, one or more of the following dose reduction techniques w ere utilized for this exam: automated exposure control, adjustment of mA and/or KV based on patient s ize, or use of iterative reconstructive technique. FINDINGS: Alignment: There is mild straightening of normal cervical lordosis. No significant subluxation or sco liosis. Bones: No fracture. No destructive bony abnormality. Interspace Levels/Facets: There is moderate chronic degenerative disk disease with disk height loss and disk osteophyte spurrin g at C5-C6 and C6-C7. There is bilateral facet spurring and hypertrophy. Musculature: Musculature is symmetric. No paravertebral hematoma. Other: Trachea is midline. No apical pneumothorax. IMPRESSION: 1. Negative for fracture and subluxation of cervical spine. 2. Moderate chronic degenerative disk disease at C5-C6 and C6-C7. [facility] Referring Provider Line: [phone] SITE ID: [id number]
[2017-01-26] MEDS ORDERED: ACETAMINOPHEN 325 MG TABLET PO ONE ×2 (13:17→13:20)
[2017-01-26] MEDS ORDERED: MECLIZINE 12.5 MG TABLET PO STA (13:26)
[2017-01-26] MEDS ORDERED: MECLIZINE 12.5 MG TABLET PO ONE (13:36)
== END 2017-01-26 13:39 | disposition home or self-care (01) ==
LOC: ED 09:07
DX: S06.0X0A Concussion without loss of consciousness, initial encounter (principal); S00.03XA Contusion of scalp, initial encounter; S16.1XXA Strain of muscle, fascia and tendon at neck level, initial encounter; W20.8XXA Other cause of strike by thrown, projected or falling object, initial encounter; Y92.017 Garden or yard in single-family (private) house as the place of occurrence of the external cause; I10 Essential (primary) hypertension; E11.9 Type 2 diabetes mellitus without complications; Z79.84 Long term (current) use of oral hypoglycemic drugs; K21.9 Gastro-esophageal reflux disease without esophagitis; M79.7 Fibromyalgia; Z86.718 Personal history of other venous thrombosis and embolism; Z87.891 Personal history of nicotine dependence
CPT/HCPCS: 70450; 72125; 99283; 99284; A9270

== ENCOUNTER 2017-04-28 12:48 | Outpatient (CLI) | payer BC ==
--- NOTE | 2017-04-28 16:13 | XRAY Report ---
TWO VIEW CHEST: 04/28/2017 CLINICAL INDICATION: Cough. COMPARISON: 12/21/2013. FINDINGS: Frontal and lateral views of the chest demonstrate a normal cardiac silhouette. The lungs are clear. No effusion or pneumothorax is present. IMPRESSION: NORMAL CHEST. JOB #: [id number] EXT JOB #:[id number]
== END 2017-04-28 12:49 | disposition home or self-care (01) ==
LOC: DI 12:48
PROVIDERS: ATTEND Internal Medicine
DX: R05 Cough (principal)
CPT/HCPCS: 71020

== ENCOUNTER 2017-12-20 09:56 | Outpatient (CLI) | payer BC ==
[2017-12-20 11:00] LABS: BASOPHILS # (AUTO) 0.1 10^3/uL (0.0-0.1); BASOPHILS % (AUTO) 0.8 %; EOSINOPHILS # (AUTO) 0.1 10^3/uL (0.0-0.7); EOSINOPHILS % (AUTO) 1.3 %; HGB - HEMOGLOBIN 14.1 g/dL (12.0-16.0); LYMPHOCYTES # (AUTO) 2.9 10^3/uL (1.5-3.5); LYMPHOCYTES % (AUTO) 32.4 %; MEAN CORPUSCULAR HEMOGLOBIN 29.5 pg (27.0-31.0); MEAN CORPUSCULAR HGB CONC 32.9 g/dL (32.0-36.0); MEAN CORPUSCULAR VOLUME 89.4 fL (81.0-99.0); MEAN PLATELET VOLUME 8.1 fL (7.9-10.8); MONOCYTES # (AUTO) 0.6 10^3/uL (0.0-1.0); MONOCYTES % (AUTO) 6.1 %; NEUTROPHILS # (AUTO) 5.4 10^3/uL (1.5-6.6); NEUTROPHILS % (AUTO) 59.4 %; PLT - PLATELET COUNT 263 10^3/uL (130-450); RED BLOOD COUNT 4.77 10^6/uL (4.20-5.40); RED CELL DISTRIBUTION WIDTH 13.4 % (12.0-15.0); WHITE BLOOD COUNT 9.1 x10^3/uL (4.8-10.8)
[2017-12-20 11:12] LABS: BILIRUBIN,URINE NEGATIVE (NEGATIVE); GLUCOSE, URINE (UA) NEGATIVE (NEGATIVE); KETONES,URINE (UA) NEGATIVE (NEGATIVE); LEUKOCYTE ESTERASE, URINE TRACE (NEGATIVE); NITRITE,URINE NEGATIVE (NEGATIVE); OCCULT BLOOD,URINE NEGATIVE (NEGATIVE); PH,URINE 5.5 PH (5.0-7.5); PROTEIN,URINE NEGATIVE (NEGATIVE); UROBILINOGEN,URINE 0.2 (NORMAL) E.U./dL (NORMAL)
[2017-12-20 11:16] LABS: ALBUMIN 4.2 g/dL (3.2-5.5); ALBUMIN/GLOBULIN RATIO 1.3 (1.0-2.2); ALKALINE PHOSPHATASE 77 IU/L (42-121); ALT ALANINE AMINOTRANSFERASE 19 IU/L (10-60); AST ASPARTATE AMINOTRANSFERASE 19 IU/L (10-42); BILIRUBIN,TOTAL 0.5 mg/dL (0.2-1.0); BUN - BLOOD UREA NITROGEN 28 mg/dL (6-20); CALCIUM 9.3 mg/dL (8.5-10.3); CARBON DIOXIDE - CO2 21 mmol/L (21-32); CHLORIDE 103 mmol/L (101-111); CHOL/HDL RATIO 3.3 (<4.4); CHOLESTEROL 266 mg/dL; CREATININE 0.8 mg/dL (0.4-1.0); GFR - MDRD 71 (>89); GLUCOSE 121 mg/dL (70-100); HDL CHOLESTEROL 80 mg/dL; LDL CHOLESTEROL,CALCULATED 166 mg/dL; LDL/HDL RATIO 2.1 (<4.4); SODIUM 135 mmol/L (135-145); TOTAL PROTEIN 7.4 g/dL (6.7-8.2); VLDL CHOLESTEROL 20 mg/dL
[2017-12-20 11:28] LABS: CLARITY,URINE CLEAR (CLEAR)
[2017-12-20 11:33] LABS: HB2 TOTAL 15.6 g/dL; HEMOGLOBIN A1C 0.78 g/dL; HEMOGLOBIN A1C % 6.7 % (4.6-6.2)
[2017-12-20 12:02] LABS: BACTERIA,URINE None Seen /HPF (None Seen); RBC,URINE 0-5 /HPF (0-5); SQUAMOUS EPITHELIAL CELL,UR FEW Squamous (<= Few)
[2017-12-20 12:06] LABS: CREATININE,URINE 52.4 mg/dL; MICROALBUM/CREATININE RATIO,UR 13.4 ug/mg (<30.0); MICROALBUMIN,URINE 0.7 mg/dL (0-300.0)
== END 2017-12-20 09:57 | disposition home or self-care (01) ==
LOC: LAB 09:56
PROVIDERS: ATTEND Internal Medicine
DX: Z79.899 Other long term (current) drug therapy (principal); Z86.718 Personal history of other venous thrombosis and embolism; I10 Essential (primary) hypertension; R21 Rash and other nonspecific skin eruption; J45.909 Unspecified asthma, uncomplicated; H44.9 Unspecified disorder of globe; K21.9 Gastro-esophageal reflux disease without esophagitis; E11.40 Type 2 diabetes mellitus with diabetic neuropathy, unspecified; Z12.11 Encounter for screening for malignant neoplasm of colon; Z12.12 Encounter for screening for malignant neoplasm of rectum; D47.02 Systemic mastocytosis
CPT/HCPCS: 36415; 80053; 80061; 81001; 81003; 81599; 82043; 82570; 83036; 83520; 83721; 84207; 84443; 85025; 85379; 87086

== ENCOUNTER 2017-12-21 10:20 | Outpatient (CLI) | payer BC ==
--- NOTE | 2017-12-21 11:57 | Ultrasound Report ---
Procedure Date: 12/21/2017 Accession Number: [id number] / [id number] Procedure: US - Duplex Ext Veins Bilateral CPT Code: FULL RESULT: EXAM: Duplex Ext Veins Bilateral DATE: 12/21/2017 11:39 AM CLINICAL HISTORY: POSITIVE D DIMER, LEG PAIN COMPARISON: 10/29/2016. TECHNIQUE: Real-time sonographic vascular imaging was performed by the test conductor through the lower extremities utilizing both color-flow and Doppler spectral analysis. Multiple loan representative static images were saved for review. FINDINGS: Right: Common Femoral Vein (CFV): Normal. [Profunda Femoral Vein (PFV): Normal. Superficial Femoral Vein (SFV) Prox: Normal. Superficial Femoral Vein (SFV) Mid: Normal. Superficial Femoral Vein (SFV) Dist: Normal. Limited visualization of calf veins. Left: Common Femoral Vein (CFV): Normal. [Profunda Femoral Vein (PFV): Normal. Superficial Femoral Vein (SFV) Prox: Normal. Superficial Femoral Vein (SFV) Mid: Normal. Superficial Femoral Vein: (SFV) Dist: Normal. Limited visualization of calf veins. Other: None. IMPRESSION: No evidence for deep venous thrombosis. RADIA
== END 2017-12-21 10:21 | disposition home or self-care (01) ==
LOC: DI 10:20
PROVIDERS: ATTEND Internal Medicine
DX: M79.669 Pain in unspecified lower leg (principal); R79.1 Abnormal coagulation profile
CPT/HCPCS: 93970

== ENCOUNTER 2017-12-24 08:00 | Outpatient (CLI) | payer BC | END 2017-12-24 08:01 | disposition home or self-care (01) | LOC: LAB.R 08:00 | PROVIDERS: ATTEND Internal Medicine | DX: Z79.899 Other long term (current) drug therapy (principal); E11.9 Type 2 diabetes mellitus without complications; Z86.718 Personal history of other venous thrombosis and embolism; D47.02 Systemic mastocytosis; Z12.11 Encounter for screening for malignant neoplasm of colon; Z12.12 Encounter for screening for malignant neoplasm of rectum; I10 Essential (primary) hypertension; J45.909 Unspecified asthma, uncomplicated; K21.9 Gastro-esophageal reflux disease without esophagitis; R21 Rash and other nonspecific skin eruption | CPT/HCPCS: 82274 ==

== ENCOUNTER 2018-01-25 06:15 | Day surgery (SDC) | payer BC ==
[2018-01-25] MEDS ORDERED: LACTATED RINGERS 1,000 ML IV ONE (06:55)
[2018-01-25] MEDS ORDERED: LIDO GARGLE 30 ML BOTTLE ONE (07:07)
--- NOTE | 2018-01-25 07:16 | ANESTHESIA ---
Pre-Anesthesia VS, & Labs - Diagnosis dysphagia - Procedure egd, colonoscopy Vital Signs: Temp Pulse Resp BP Pulse Ox 36.2 C L 16 140/81 H 96 01/25/18 06:34 01/25/18 06:34 01/25/18 06:34 01/25/18 06:34 Height 5 ft 2 in Weight (kg) 83.6 kg Body Mass Index 29.8 - NPO >8 hours - Is Patient ?: Not Applicable - Lab Results Lab results reviewed: Yes Home Medications and Allergies Home Medications: Ambulatory Orders Medication Instructions Recorded Confirmed Calcium Carbonate/Vitamin D3 1 tab PO DAILY 12/26/12 01/25/18 [Calcium + Vitamin D Tablet] Famotidine [Pepcid] 40 mg PO DAILY 12/26/12 01/21/18 Sitagliptin Phosphate [Januvia] 100 mg PO DAILY 12/26/12 01/21/18 Alprazolam [Xanax] 1 - 2 tab PO QPM PRN 06/05/13 01/25/18 Amlodipine Besylate 5 mg PO DAILY 06/30/16 01/25/18 Losartan [Cozaar] 50 mg PO BID 06/30/16 01/25/18 Aspirin 1 tab PO DAILY 11/11/16 01/25/18 Cannabis Cbd PRN 11/11/16 Cromolyn Sodium [Gastrocrom] 10 ml PO QID 11/11/16 01/21/18 Dexamethasone [Decadron] 4 mg PO DAILY #5 tablet 11/11/16 01/25/18 Fexofenadine HCl [Pauline Allergy] 180 mg DAILY 11/11/16 01/25/18 Ketotifen 2 Pills Daily 1 tab PO BID 11/11/16 01/25/18 Multivitamin [Multivitamins] 1 tab DAILY 11/11/16 01/25/18 Omeprazole [PriLOSEC] 40 mg PO DAILY 11/11/16 01/25/18 Clobetasol 0.05% Oint [Temovate 1 applic TOP PRN PRN 01/25/18 01/25/18 0.05% Oint] Fexofenadine HCl [Pauline Allergy] 60 mg PO DAILY 01/25/18 01/25/18 diphenhydrAMINE [Benadryl] 200 mg PO ONCE PRN 01/25/18 01/25/18 Allergies/Adverse Reactions: Allergies Allergy/AdvReac Type Severity Reaction Status Date / Time amoxicillin [Amoxicillin] Allergy Intermediate Respiratory Verified 01/25/18 06: 44 Beta-Blockers Allergy Intermediate Respiratory Verified 01/25/18 06:44 (Beta-Adrenergic Bloc guaifenesin [From Humibid] Allergy Intermediate Respiratory Verified 01/25/18 06 :44 Penicillins Allergy Intermediate Respiratory Verified 01/25/18 06:44 prednisone Allergy Intermediate Respiratory Verified 01/25/18 06:44 Sulfa (Sulfonamide Allergy Intermediate Respiratory Verified 01/25/18 06:44 Antibiotics) tetracaine Allergy Intermediate Respiratory Verified 01/25/18 06:44 tetracycline [Tetracycline] Allergy Intermediate Respiratory Verified 01/25/18 06:44 tramadol HCl * [From Ultram] Allergy Intermediate Respiratory Verified 01/25/18 06:44 fluoxetine HCl * Allergy Mild Respiratory Verified 01/25/18 06:44 [From Prozac] budesonide Allergy Unknown Verified 01/25/18 06:44 bupropion HCl * Allergy Unknown Verified 01/25/18 06:44 [From Wellbutrin] ciclesonide [From Omnaris] Allergy Unknown Verified 01/25/18 06:44 clonidine Allergy Unknown Verified 01/25/18 06:44 hydrocortisone Allergy Unknown Verified 01/25/18 06:44 latex Allergy Rash Verified 01/25/18 06:44 Latex, Natural Rubber Allergy Rash Verified 01/25/18 06:44 methylprednisolone Allergy Unknown Verified 01/25/18 06:44 [From Medrol] succinylcholine Allergy Maglignant Verified 01/25/18 06:44 Hyperthermia terazosin Allergy Unknown Verified 01/25/18 06:44 amitriptyline HCl * AdvReac Unknown Verified 01/25/18 06:44 [From Elavil] gabapentin [From Neurontin] AdvReac Unknown Verified 01/25/18 06:44 nortriptyline AdvReac Unknown Verified 01/25/18 06:44 2-bromo-2 nitropropane Allergy Unknown Uncoded 01/25/18 06:44 acrylics Allergy Unknown Uncoded 01/25/18 06:44 balsam donald Allergy Unknown Uncoded 01/25/18 06:44 glyceryl thioglycolate Allergy Unknown Uncoded 01/25/18 06:44 HRT Allergy Unknown Uncoded 01/25/18 06:44 iodopropynyl butyl carbamate Allergy Unknown Uncoded 01/25/18 06:44 rolo Allergy Unknown Uncoded 01/25/18 06:44 sulfate Allergy Unknown Uncoded 01/25/18 06:44 bellamine AdvReac Unknown Uncoded 01/25/18 06:44 Anes History & Medical History - Anesthetic History Anesthesia Complications: reports: Malignant Hyperthermia Family history of Anesthesia Complications: Reports Family history of Malignant Hyperthermia: Reports - Medical History Cardiovascular: reports: Hypertension, Deep vein thrombosis Pulmonary: reports: Asthma Gastrointestinal: reports: GERD, Hiatal hernia Urinary: reports: None Musculoskeletal: reports: Fibromyalgia Endocrine/Autoimmune: reports: Type 2 diabetes Blood Disorders: reports: None Skin: reports: None Smoking Status: Former smoker - Surgical History General: Appendectomy, Colonoscopy Eyes Ears Nose Throat (EENT): Tonsil/Adenoidectomy Exam General: Alert, Oriented x3, Cooperative, No acute distress Mouth Openin Fingerbreadth Neck Mobility: Reduced Mallampati classification: II Thyromental Distance: 4-6 cm Respiratory: Lungs clear, Normal breath sounds, No respiratory distress, No accessory muscle use Cardiovascular: Regular rate, Normal S1, Normal S2, No murmurs Mental/Cognitive Status: Alert/Oriented X3, Normal for patient Cognitive Status: Within normal limits Plan Anesthesia Type: MAC Consent for Procedure(s) Verified and Reviewed: Yes Code Status: Attempt Resuscitation ASA classification: 2-Mild systemic disease Is this case an emergency?: No
[2018-01-25] MEDS ORDERED: PROPOFOL 200 MG/20 ML VIAL IVP ONE (08:20)
[2018-01-25 09:41] VITALS: BP 123/70
== END 2018-01-25 06:16 | disposition home or self-care (01) ==
LOC: SDS 06:15
PROVIDERS: ATTEND Surgery
PROC: 0DB78ZX Excision of Stomach, Pylorus, Via Natural or Artificial Opening Endoscopic, Diagnostic (ICD-10-PCS; 2018-01-25)
PROC: 0DJD8ZZ Inspection of Lower Intestinal Tract, Via Natural or Artificial Opening Endoscopic (ICD-10-PCS; principal; 2018-01-25 07:30)
PROC: 0DB38ZX Excision of Lower Esophagus, Via Natural or Artificial Opening Endoscopic, Diagnostic (ICD-10-PCS; 2018-01-25 07:30)
DX: R19.5 Other fecal abnormalities (principal); K57.30 Diverticulosis of large intestine without perforation or abscess without bleeding; K64.8 Other hemorrhoids; K22.8 Other specified diseases of esophagus; K29.70 Gastritis, unspecified, without bleeding; K21.9 Gastro-esophageal reflux disease without esophagitis; R13.10 Dysphagia, unspecified; I10 Essential (primary) hypertension; E11.9 Type 2 diabetes mellitus without complications; F41.9 Anxiety disorder, unspecified; J45.909 Unspecified asthma, uncomplicated; Z79.84 Long term (current) use of oral hypoglycemic drugs; Z87.19 Personal history of other diseases of the digestive system; Z79.899 Other long term (current) drug therapy; Z87.891 Personal history of nicotine dependence; Z84.89 Family history of other specified conditions; Z79.82 Long term (current) use of aspirin; Z87.11 Personal history of peptic ulcer disease; Z86.718 Personal history of other venous thrombosis and embolism
CPT/HCPCS: 43239; 45378; 87081; A9270; J7120

== ENCOUNTER 2018-02-07 14:29 | Outpatient (CLI) | payer BC ==
--- NOTE | 2018-02-08 14:57 | Mammography Report ---
Reason: SCREENING MAMMO Procedure Date: 02/07/2018 Accession Number: [id number] / [id number] Procedure: SUDARSHAN - Screening Mammo Dig Bilat CPT Code: FULL RESULT: EXAM: Screening Mammo Dig Bilat DATE: 02/07/2018 2:54 PM CLINICAL HISTORY: Screening mammogram TECHNIQUE: Bilateral CC and MLO views were obtained. COMPARISON: Mammogram 12/21/2016 FINDINGS: There are scattered fibroglandular densities. No suspicious masses, clustered microcalcifications, or regions of architectural distortion are identified. There are benign-appearing calcifications in lymph nodes. IMPRESSION: Benign findings RECOMMENDATION: Routine annual screening unless otherwise clinically indicated. BIRADS CATEGORY 2: Benign findings STANDARD QUALIFYING STATEMENTS: 1. This examination was reviewed with the aid of Computer-Aided Detection (CAD). 2. A negative or benign imaging report should not delay biopsy if clinically suspicious findings are present. Consider surgical consultation if warrented. More than 5% of cancers are not identified by imaging. 3. Dense breasts may obscure an underlying neoplasm.
== END 2018-02-07 14:30 | disposition home or self-care (01) ==
LOC: DI 14:29
PROVIDERS: ATTEND Internal Medicine
DX: Z12.31 Encounter for screening mammogram for malignant neoplasm of breast (principal)
CPT/HCPCS: 77067

== ENCOUNTER 2018-02-21 10:55 | Emergency (ER) | payer BC ==
[2018-02-21 11:02] VITALS: BP 144/96
--- NOTE | 2018-02-21 11:31 | XRAY Report ---
Reason: chest pressure Procedure Date: 02/21/2018 Accession Number: [id number] / [id number] Procedure: XR - Chest 2 View X-Ray CPT Code: 93577 FULL RESULT: EXAM: CHEST RADIOGRAPHY EXAM DATE: 02/21/2018 11:15 AM. CLINICAL HISTORY: Chest pressure. COMPARISON: CHEST 2 VIEW PA/LAT 04/28/2017 12:49 PM CHEST 2 VIEW PA/LAT 12/19/2013 3:54 PM XR CHEST PA AND LAT 12/15/2010 1:43 PM. TECHNIQUE: 2 views. FINDINGS: Lungs/Pleura: Focal lingular opacity. No pneumothorax or pleural effusion. Mediastinum: Atherosclerotic aortic calcifications. Other: Lower thoracic spine degenerative changes. IMPRESSION: 1. Lingular atelectasis versus developing airspace disease. RADIA
[2018-02-21 11:45] LABS: BASOPHILS # (AUTO) 0.1 10^3/uL (0.0-0.1); BASOPHILS % (AUTO) 0.9 %; EOSINOPHILS # (AUTO) 0.1 10^3/uL (0.0-0.7); EOSINOPHILS % (AUTO) 0.8 %; HGB - HEMOGLOBIN 14.4 g/dL (12.0-16.0); LYMPHOCYTES # (AUTO) 3.3 10^3/uL (1.5-3.5); LYMPHOCYTES % (AUTO) 31.7 %; MEAN CORPUSCULAR HEMOGLOBIN 29.5 pg (27.0-31.0); MEAN CORPUSCULAR HGB CONC 33.7 g/dL (32.0-36.0); MEAN CORPUSCULAR VOLUME 87.5 fL (81.0-99.0); MONOCYTES # (AUTO) 0.6 10^3/uL (0.0-1.0); MONOCYTES % (AUTO) 5.6 %; NEUTROPHILS # (AUTO) 6.3 10^3/uL (1.5-6.6); PLT - PLATELET COUNT 272 10^3/uL (130-450); RED CELL DISTRIBUTION WIDTH 13.5 % (12.0-15.0); WHITE BLOOD COUNT 10.4 x10^3/uL (4.8-10.8)
[2018-02-21 11:58] LABS: ALBUMIN 4.4 g/dL (3.2-5.5); ALBUMIN/GLOBULIN RATIO 1.5 (1.0-2.2); BILIRUBIN,TOTAL 0.6 mg/dL (0.2-1.0); CALCIUM 9.3 mg/dL (8.5-10.3); CREATININE 0.8 mg/dL (0.4-1.0); TOTAL PROTEIN 7.4 g/dL (6.7-8.2)
--- NOTE | 2018-02-21 12:32 | ED Physician Documentation ---
PD HPI CHEST PAIN - Stated complaint Stated Complaint: DIZZY/NAUSEA/CHEST PX - Chief complaint Chief Complaint: Resp - History obtained from History obtained from: Patient - History of Present Illness Timing - onset: Today, Last night Timing - onset during: Other (having feeling of lightheaded, dyspnea, and nausea. Had bad odor in house (thought it was from paving on road being done outside) and found that it was their propane stove was turned on slightly, so having mild propane leak.) Timing - details: Gradual onset, Still present (but improving since out of the house) Quality: Tightness (with some feeling of dyspnea. Also with some headache and feeling lightheaded.) Location: Substernal Associated symptoms: Shortness of air, Feeling faint / dizzy. No: Nausea, Vomiting, Palpitations, Cough Similar symptoms before: Has not had sx before Recently seen: Not recently seen (called their Nurse advice line and was told to come to ER urgently for concern of CO poisoning.) Review of Systems Constitutional: denies: Fever, Chills Nose: denies: Rhinorrhea / runny nose, Congestion Throat: denies: Sore throat Cardiac: reports: Chest pain / pressure. denies: Palpitations, Pedal edema, Calf pain Respiratory: reports: Dyspnea. denies: Cough, Hemoptysis, Wheezing GI: denies: Abdominal Pain, Nausea, Vomiting Neurologic: reports: Generalized weakness, Headache. denies: Focal weakness, Near syncope, Confused, Altered mental status, Head injury PD PAST MEDICAL HISTORY - Past Medical History Past Medical History: Yes Cardiovascular: Hypertension, Deep vein thrombosis Respiratory: Asthma, COPD Endocrine/Autoimmune: Type 2 diabetes GI: GERD, Hiatal hernia FEEDER/FOLDER: Ovarian cysts : None HEENT: None Psych: Panic attacks Musculoskeletal: Fibromyalgia Derm: None Other Past Medical History: Mast cell disorder - Past Surgical History Past Surgical History: Yes General: Appendectomy, Colonoscopy HEENT: Tonsil/Adenoidectomy - Present Medications Home Medications: Ambulatory Orders Medication Instructions Recorded Confirmed Calcium Carbonate/Vitamin D3 1 tab PO DAILY 12/26/12 01/25/18 [Calcium + Vitamin D Tablet] Famotidine [Pepcid] 40 mg PO DAILY 12/26/12 01/21/18 Sitagliptin Phosphate [Januvia] 100 mg PO DAILY 12/26/12 01/21/18 Alprazolam [Xanax] 1 - 2 tab PO QPM PRN 06/05/13 01/25/18 Amlodipine Besylate 5 mg PO DAILY 06/30/16 01/25/18 Losartan [Cozaar] 50 mg PO BID 06/30/16 01/25/18 Aspirin 1 tab PO DAILY 11/11/16 01/25/18 Cannabis Cbd PRN 11/11/16 Cromolyn Sodium [Gastrocrom] 10 ml PO QID 11/11/16 01/21/18 Dexamethasone [Decadron] 4 mg PO DAILY #5 tablet 11/11/16 01/25/18 Fexofenadine HCl [Pauline Allergy] 180 mg DAILY 11/11/16 01/25/18 Ketotifen 2 Pills Daily 1 tab PO BID 11/11/16 01/25/18 Multivitamin [Multivitamins] 1 tab DAILY 11/11/16 01/25/18 Omeprazole [PriLOSEC] 40 mg PO DAILY 11/11/16 01/25/18 Clobetasol 0.05% Oint [Temovate 1 applic TOP PRN PRN 01/25/18 01/25/18 0.05% Oint] Fexofenadine HCl [Pauline Allergy] 60 mg PO DAILY 01/25/18 01/25/18 diphenhydrAMINE [Benadryl] 200 mg PO ONCE PRN 01/25/18 01/25/18 - Allergies Allergies/Adverse Reactions: Allergies Allergy/AdvReac Type Severity Reaction Status Date / Time amoxicillin [Amoxicillin] Allergy Intermediate Respiratory Verified 01/25/18 06:44 Beta-Blockers Allergy Intermediate Respiratory Verified 01/25/18 06:44 (Beta-Adrenergic Bloc guaifenesin [From Humibid] Allergy Intermediate Respiratory Verified 01/25/18 06:44 Penicillins Allergy Intermediate Respiratory Verified 01/25/18 06:44 prednisone Allergy Intermediate Respiratory Verified 01/25/18 06:44 Sulfa (Sulfonamide Allergy Intermediate Respiratory Verified 01/25/18 06:44 Antibiotics) tetracaine Allergy Intermediate Respiratory Verified 01/25/18 06:44 tetracycline [Tetracycline] Allergy Intermediate Respiratory Verified 01/25/18 06:44 tramadol HCl * [From Ultram] Allergy Intermediate Respiratory Verified 01/25/18 06:44 fluoxetine HCl * Allergy Mild Respiratory Verified 01/25/18 06:44 [From Prozac] budesonide Allergy Unknown Verified 01/25/18 06:44 bupropion HCl * Allergy Unknown Verified 01/25/18 06:44 [From Wellbutrin] ciclesonide [From Omnaris] Allergy Unknown Verified 01/25/18 06:44 clonidine Allergy Unknown Verified 01/25/18 06:44 hydrocortisone Allergy Unknown Verified 01/25/18 06:44 latex Allergy Rash Verified 01/25/18 06:44 Latex, Natural Rubber Allergy Rash Verified 01/25/18 06:44 methylprednisolone Allergy Unknown Verified 01/25/18 06:44 [From Medrol] succinylcholine Allergy Maglignant Verified 01/25/18 06:44 Hyperthermia terazosin Allergy Unknown Verified 01/25/18 06:44 amitriptyline HCl * AdvReac Unknown Verified 01/25/18 06:44 [From Elavil] gabapentin [From Neurontin] AdvReac Unknown Verified 01/25/18 06:44 nortriptyline AdvReac Unknown Verified 01/25/18 06:44 2-bromo-2 nitropropane Allergy Unknown Uncoded 01/25/18 06:44 acrylics Allergy Unknown Uncoded 01/25/18 06:44 balsam donald Allergy Unknown Uncoded 01/25/18 06:44 glyceryl thioglycolate Allergy Unknown Uncoded 01/25/18 06:44 HRT Allergy Unknown Uncoded 01/25/18 06:44 iodopropynyl butyl carbamate Allergy Unknown Uncoded 01/25/18 06:44 rolo Allergy Unknown Uncoded 01/25/18 06:44 sulfate Allergy Unknown Uncoded 01/25/18 06:44 bellamine AdvReac Unknown Uncoded 01/25/18 06:44 - Social History Does the pt smoke?: No Smoking Status: Never smoker Does the pt drink ETOH?: Yes - Immunizations Immunizations are current?: Yes - POLST Patient has POLST: No PD ED PE NORMAL - Vitals Vital signs reviewed: Yes - General General: Alert and oriented X 3, No acute distress, Well developed/nourished - HEENT HEENT: Pharynx benign - Neck Neck: Supple, no meningeal sign, No adenopathy - Cardiac Cardiac: RRR, No murmur - Respiratory Respiratory: Clear bilaterally - Abdomen Abdomen: Soft, Non tender, Non distended - Back Back: No CVA TTP - Derm Derm: Normal color, Warm and dry - Extremities Extremities: No deformity, No tenderness to palpate, Normal ROM s pain, No edema, No calf tenderness / cord - Neuro Neuro: Alert and oriented X 3, qa intern 2-12 intact, No motor deficit, No sensory deficit, Normal speech Eye Opening: Spontaneous Motor: Obeys Commands Verbal: Oriented GCS Score: 15 - Psych Psych: Normal mood, Normal affect Results - Vitals Vitals: Vital Signs - 24 hr 02/21/18 02/21/18 02/21/18 10:59 11:55 12:07 Temperature 36.8 C Heart Rate 101 H 81 Respiratory 16 Rate Blood Pressure 144/96 H O2 Saturation 99 93 99 02/21/18 02/21/18 12:50 12:59 Temperature Heart Rate 81 80 Respiratory 15 16 Rate Blood Pressure O2 Saturation 100 99 Oxygen O2 Source Room air Oxygen Flow Rate 2 - EKG (time done) 11:00 Rate: Rate (enter#) (97) Rhythm: NSR [place]: Normal Intervals: Normal NE QRS: Normal Ischemia: Normal ST segments. No: ST elevation c/w ischemia, ST depression, Hyperacute T waves - Labs Labs: Laboratory Tests 02/21/18 02/21/18 02/21/18 11:30 11:30 11:30 WBC 10.4 RBC 4.90 Hgb 14.4 Hct 42.9 MCV 87.5 MCH 29.5 MCHC 33.7 RDW 13.5 Plt Count 272 MPV 8.0 Neut # (Auto) 6.3 Lymph # (Auto) 3.3 [place] # (Auto) 0.6 Eos # (Auto) 0.1 Baso # (Auto) 0.1 Absolute Nucleated RBC 0.00 Nucleated RBC % 0.0 VBG Total Hgb VBG Oxyhemoglobin VBG Carboxyhemoglobin VBG Methemoglobin Sodium 138 Potassium 3.9 Chloride 103 Carbon Dioxide 23 Anion Gap 12.0 BUN 23 H Creatinine 0.8 Estimated GFR (MDRD) 71 L Glucose 144 H Calcium 9.3 Total Bilirubin 0.6 AST 19 ALT 17 Alkaline Phosphatase 81 Troponin I < 0.04 Total Protein 7.4 Albumin 4.4 Globulin 3.0 Albumin/Globulin Ratio 1.5 Lipase 43 02/21/18 12:00 WBC RBC Hgb Hct MCV MCH MCHC RDW Plt Count MPV Neut # (Auto) Lymph # (Auto) [place] # (Auto) Eos # (Auto) Baso # (Auto) Absolute Nucleated RBC Nucleated RBC % VBG Total Hgb 15.2 VBG Oxyhemoglobin 88 L VBG Carboxyhemoglobin 0.7 VBG Methemoglobin 0.1 Sodium Potassium Chloride Carbon Dioxide Anion Gap BUN Creatinine Estimated GFR (MDRD) Glucose Calcium Total Bilirubin AST ALT Alkaline Phosphatase Troponin I Total Protein Albumin Globulin Albumin/Globulin Ratio Lipase - Rads (name of study) chest xray Radiology: Prelim report reviewed, EMP read contemporaneously (normal) PD MEDICAL DECISION MAKING - ED course Complexity details: considered differential (she had talked with referral nurse service, who had directed her to ER for concern of CO due to propane gas exposure. Not conbusted fuel so not a CO concern, but certainly having some hydrocarbon inhalation symptoms. These should clear without residual effect given just single short exposure. ), d/w patient - Sepsis Event Vital Signs: Vital Signs - 24 hr 02/21/18 02/21/18 02/21/18 10:59 11:55 12:07 Temperature 36.8 C Heart Rate 101 H 81 Respiratory 16 Rate Blood Pressure 144/96 H O2 Saturation 99 93 99 02/21/18 02/21/18 12:50 12:59 Temperature Heart Rate 81 80 Respiratory 15 16 Rate Blood Pressure O2 Saturation 100 99 Oxygen O2 Source Room air Oxygen Flow Rate 2 Departure - Departure Disposition: 01 Home, Self Care Clinical Impression: Light-headed feeling, Chest tightness Toxic effect of propane Qualifiers: Encounter type: initial encounter Injury intent: accidental or unintentional Qualified Code(s): T59.891A - Toxic effect of other specified gases, fumes and vapors, accidental (unintentional), initial encounter Condition: Stable Record reviewed to determine appropriate education?: Yes Instructions: ED Inhalation Chemical Follow-Up: Cyn Bustos MD [Primary Care Provider] - Comments: You may feel some mild headache and lightheadedness for a day or 2. This can be an effect of the hydrocarbon inhalation. There is not any carbon monoxide to it. Continue usual medications and stay well-hydrated today. Make sure your house is well ventilated and the smell is clear before returning. Discharge Date/Time: 02/21/18 12:59
== END 2018-02-21 12:59 | disposition home or self-care (01) ==
LOC: ED 10:55
DX: R42 Dizziness and giddiness (principal); R07.89 Other chest pain; T59.891A Toxic effect of other specified gases, fumes and vapors, accidental (unintentional), initial encounter; R94.31 Abnormal electrocardiogram [ECG] [EKG]; I10 Essential (primary) hypertension; E11.9 Type 2 diabetes mellitus without complications; Z86.718 Personal history of other venous thrombosis and embolism
CPT/HCPCS: 36415; 71046; 80053; 82375; 83690; 84484; 85025; 93005; 93010; 99282; 99284

== ENCOUNTER 2018-06-23 11:24 | Outpatient (CLI) | payer BC ==
[2018-06-23 16:04] LABS: CALCIUM 9.3 mg/dL (8.5-10.3); CREATININE 0.8 mg/dL (0.4-1.0)
[2018-06-23 19:11] LABS: HEMOGLOBIN A1C 0.74 g/dL; HEMOGLOBIN A1C % 6.4 % (4.6-6.2)
== END 2018-06-23 11:25 | disposition home or self-care (01) ==
LOC: LAB 11:24
PROVIDERS: ATTEND Internal Medicine
DX: E11.9 Type 2 diabetes mellitus without complications (principal); R20.2 Paresthesia of skin
CPT/HCPCS: 36415; 80048; 81599; 83036; 84207

== ENCOUNTER 2018-08-10 08:00 | Outpatient (CLI) | payer BC ==
[2018-08-10 15:55] LABS: BILIRUBIN,URINE NEGATIVE (NEGATIVE); GLUCOSE, URINE (UA) NEGATIVE (NEGATIVE); KETONES,URINE (UA) NEGATIVE (NEGATIVE); LEUKOCYTE ESTERASE, URINE SMALL (NEGATIVE); NITRITE,URINE NEGATIVE (NEGATIVE); OCCULT BLOOD,URINE NEGATIVE (NEGATIVE); PROTEIN,URINE NEGATIVE (NEGATIVE); UROBILINOGEN,URINE 0.2 (NORMAL) E.U./dL (NORMAL)
[2018-08-10 15:56] LABS: CLARITY,URINE CLEAR (CLEAR)
[2018-08-10 16:06] LABS: BACTERIA,URINE None Seen /HPF (None Seen); RBC,URINE 0-5 /HPF (0-5); SQUAMOUS EPITHELIAL CELL,UR MOD Squamous (<= Few)
== END 2018-08-10 23:59 ==
LOC: LAB.R 08:00
PROVIDERS: ATTEND Internal Medicine
DX: R10.9 Unspecified abdominal pain (principal)
CPT/HCPCS: 81001; 81003; 87086

== ENCOUNTER 2018-12-17 11:55 | Outpatient (CLI) | payer BC | END 2018-12-17 11:56 | disposition home or self-care (01) | LOC: LAB 11:55 | PROVIDERS: ATTEND Internal Medicine | DX: R51 Headache (principal); I10 Essential (primary) hypertension | CPT/HCPCS: 82565 ==

== ENCOUNTER 2018-12-17 12:02 | Outpatient (CLI) | payer BC ==
--- NOTE | 2018-12-19 10:36 | MRI Report ---
Reason: NEW DAILY PERSISTENT HEADACHE Procedure Date: 12/17/2018 Accession Number: [id number] / [id number] Procedure: MRI - Brain W/O CPT Code: FULL RESULT: EXAM: MRI BRAIN WITHOUT CONTRAST EXAM DATE: 12/17/2018 02:05 PM. CLINICAL HISTORY: 73-year-old woman with new daily persistent headache. COMPARISON: HEAD W/O 01/26/2017 12:45 PM. TECHNIQUE: Multiplanar, multisequence T1-weighted and fluid-sensitive MR sequences of the brain were performed. Sequences optimized for routine evaluation. Other: None. IV Contrast: None. FINDINGS: Parenchyma: No evidence of acute infarct on diffusion weighted sequence. The parenchyma demonstrates mild burden of nonspecific FLAIR hyperintensities in the deep cerebral white matter, most consistent with sequelae of chronic small vessel ischemic disease and a common finding in this age group. No evidence of prior hemorrhage on susceptibility weighted sequence. Pituitary: Unremarkable. Ventricles and Extra-axial Spaces: Ventricles are symmetric and normal in size for age. Extra-axial spaces are unremarkable except for prominent CSF spaces over the frontal lobes, most consistent with central cerebral volume loss typical for age. Orbits: Unremarkable except for bilateral lens replacement surgery. Mastoid air cells are clear. Sinuses: Paranasal sinuses and mastoid air cells are clear. Major Vascular Flow Voids: Intact. IMPRESSION: 1. No acute intracranial abnormality. Specifically, no evidence of acute infarct, hemorrhage, or mass lesion. 2. Mild white matter changes, most consistent with sequelae of chronic small vessel ischemic disease and a common finding in this age group. RADIA
== END 2018-12-17 12:03 | disposition home or self-care (01) ==
LOC: DI 12:02
PROVIDERS: ATTEND Psychiatry & Neurology Neurology
DX: G44.52 New daily persistent headache (NDPH) (principal); I10 Essential (primary) hypertension
CPT/HCPCS: 36415; 70551; 82565

== ENCOUNTER 2019-01-18 21:00 | Outpatient (CLI) | payer BC ==
[2019-01-18 14:28] LABS: BASOPHILS # (AUTO) 0.1 10^3/uL (0.0-0.1); BASOPHILS % (AUTO) 0.5 %; EOSINOPHILS # (AUTO) 0.1 10^3/uL (0.0-0.7); EOSINOPHILS % (AUTO) 0.8 %; HGB - HEMOGLOBIN 14.3 g/dL (12.0-16.0); LYMPHOCYTES # (AUTO) 3.5 10^3/uL (1.5-3.5); LYMPHOCYTES % (AUTO) 31.3 %; MEAN CORPUSCULAR HEMOGLOBIN 29.6 pg (27.0-31.0); MEAN CORPUSCULAR HGB CONC 33.7 g/dL (32.0-36.0); MEAN CORPUSCULAR VOLUME 87.8 fL (81.0-99.0); MONOCYTES # (AUTO) 0.6 10^3/uL (0.0-1.0); MONOCYTES % (AUTO) 5.5 %; NEUTROPHILS # (AUTO) 6.9 10^3/uL (1.5-6.6); NEUTROPHILS % (AUTO) 61.4 %; PLT - PLATELET COUNT 294 10^3/uL (130-450); RED BLOOD COUNT 4.83 10^6/uL (4.20-5.40); RED CELL DISTRIBUTION WIDTH 13.3 % (12.0-15.0); WHITE BLOOD COUNT 11.2 x10^3/uL (4.8-10.8)
[2019-01-18 14:39] LABS: ALBUMIN/GLOBULIN RATIO 1.3 (1.0-2.2); BILIRUBIN,TOTAL 0.4 mg/dL (0.2-1.0); CALCIUM 9.3 mg/dL (8.5-10.3); CREATININE 0.9 mg/dL (0.4-1.0)
[2019-01-18 14:48] LABS: HB2 TOTAL 15.5 g/dL; HEMOGLOBIN A1C 0.85 g/dL; HEMOGLOBIN A1C % 7.2 % (4.6-6.2)
[2019-01-18 15:38] LABS: THYROID STIMULATING HORMONE 2.32 uIU/mL (0.34-5.60)
[2019-01-18 21:11] LABS: BILIRUBIN,URINE NEGATIVE (NEGATIVE); GLUCOSE, URINE (UA) NEGATIVE (NEGATIVE); KETONES,URINE (UA) NEGATIVE (NEGATIVE); LEUKOCYTE ESTERASE, URINE NEGATIVE (NEGATIVE); NITRITE,URINE NEGATIVE (NEGATIVE); OCCULT BLOOD,URINE NEGATIVE (NEGATIVE); PROTEIN,URINE NEGATIVE (NEGATIVE); UROBILINOGEN,URINE 0.2 (NORMAL) E.U./dL (NORMAL)
[2019-01-18 21:22] LABS: CREATININE,URINE 115.2 mg/dL; MICROALBUM/CREATININE RATIO,UR 5.2 ug/mg (<30.0); MICROALBUMIN,URINE 0.6 mg/dL (0-300.0)
[2019-01-18 21:34] LABS: CLARITY,URINE CLEAR (CLEAR)
--- NOTE | 2019-01-18 22:59 | Ultrasound Report ---
Reason: PAIN IN LEFT LEG, PAIN IN RIGHT LEG Procedure Date: 01/18/2019 Accession Number: [id number] / [id number] Procedure: US - Duplex Ext Veins Bilateral CPT Code: FULL RESULT: EXAM: BILATERAL LOWER EXTREMITY VENOUS ULTRASOUND EXAM DATE: 01/18/2019 09:33 PM. CLINICAL HISTORY: PAIN IN LEFT LEG, PAIN IN RIGHT LEG. COMPARISON: DUPLEX EXT VEINS BILATERAL 12/21/2017 10:30 AM. TECHNIQUE: Real-time sonographic vascular imaging was performed by the minute clerk for basic traffic through the lower extremities utilizing both color-flow and Doppler spectral analysis. Multiple insurance healthcare representative static images were saved for review. FINDINGS: Right: Common Femoral Vein (CFV): Normal. CFV-GSV Junction: Normal. Profunda Femoral Vein (PFV): Normal. Femoral Vein (FV) Prox: Normal. Femoral Vein (FV) Mid: Normal. Femoral Vein (FV) Dist: Normal. Popliteal Vein: Normal. Posterior Tibial Veins: Normal. Peroneal Veins: Normal. Left: Common Femoral Vein (CFV): Normal. CFV-GSV Junction: Normal. Profunda Femoral Vein (PFV): Normal. Femoral Vein (FV) Prox: Normal. Femoral Vein (FV) Mid: Normal. Femoral Vein (FV) Dist: Normal. Popliteal Vein: Normal. Posterior Tibial Veins: Normal. Peroneal Veins: Normal. Other: None. IMPRESSION: No evidence for deep venous thrombosis bilaterally. RADIA
== END 2019-01-18 21:01 | disposition home or self-care (01) ==
LOC: DI 21:00
PROVIDERS: ATTEND Internal Medicine
DX: M79.605 Pain in left leg (principal); M79.604 Pain in right leg; G43.909 Migraine, unspecified, not intractable, without status migrainosus; I10 Essential (primary) hypertension; Z13.6 Encounter for screening for cardiovascular disorders; J44.9 Chronic obstructive pulmonary disease, unspecified; K21.9 Gastro-esophageal reflux disease without esophagitis; K58.9 Irritable bowel syndrome, unspecified; E11.40 Type 2 diabetes mellitus with diabetic neuropathy, unspecified; E78.5 Hyperlipidemia, unspecified; D47.02 Systemic mastocytosis
CPT/HCPCS: 36415; 80053; 81001; 81003; 81599; 82043; 82570; 82607; 83036; 84207; 84443; 85025; 87086; 93970

== ENCOUNTER 2019-02-01 09:23 | Outpatient (CLI) | payer BC ==
[2019-02-01 10:10] LABS: CHOL/HDL RATIO 3.1 (<4.4); CHOLESTEROL 257 mg/dL; HDL CHOLESTEROL 84 mg/dL; LDL CHOLESTEROL,CALCULATED 151 mg/dL; LDL/HDL RATIO 1.8 (<4.4); VLDL CHOLESTEROL 22 mg/dL
[2019-02-01 10:30] LABS: FOLATE 12.71 ng/mL (5.90 - >24.8)
== END 2019-02-01 09:24 | disposition home or self-care (01) ==
LOC: LAB 09:23
PROVIDERS: ATTEND Internal Medicine
DX: E78.5 Hyperlipidemia, unspecified (principal); E53.8 Deficiency of other specified B group vitamins; Z13.6 Encounter for screening for cardiovascular disorders
CPT/HCPCS: 36415; 80061; 82607; 82746; 83090; 83721; 83921

== ENCOUNTER 2019-02-04 13:39 | Outpatient (CLI) | payer BC ==
--- NOTE | 2019-02-05 16:40 | MRI Report ---
Reason: DAILY HEADACHE Procedure Date: 02/04/2019 Accession Number: [id number] / [id number] Procedure: MRI - MRV-Brain Venous W/O CPT Code: FULL RESULT: EXAM: MR VENOGRAM BRAIN EXAM DATE: 02/04/2019 02:18 PM. CLINICAL HISTORY: 73-year-old female. DAILY HEADACHE. COMPARISON: MR brain 12/17/2018 TECHNIQUE: Multiplanar, multisequence MRV sequences of the brain were performed. Other: None. Post-processing: Multiplanar 3D MIP reconstructions. IV Contrast: None. FINDINGS: CENTRAL Superior Sagittal Sinus: Patent. No thrombus or stenosis evident. Inferior Sagittal Sinus: Patent. No thrombus or stenosis evident. Straight Sinus/ Vein of [place]: Patent. No thrombus or stenosis evident. RIGHT Transverse Sinus: There is narrowing of the distal right transverse sinus (for example series 401 image 253). Right transverse sinus is patent. Sigmoid Sinus: Patent. No thrombus or stenosis evident. Other Veins: The visualized deep and cortical veins are patent. No thrombus or stenosis evident. LEFT Transverse Sinus: There is narrowing of the distal left transverse sinus (series 401 image 253). The left transverse sinus is patent. Sigmoid Sinus: Patent. No thrombus or stenosis evident. Other Veins: The visualized deep and cortical veins are patent. No thrombus or stenosis evident. Other: None. IMPRESSION: 1. Narrowing of the distal transverse sinuses bilaterally (series 401 image 253). The transverse sinuses bilaterally remain patent. This nonspecific finding is associated with idiopathic intracranial hypertension (pseudotumor cerebri). Correlate with CSF opening pressure. 2. Remaining dural venous sinuses are unremarkable. RADIA
== END 2019-02-04 13:40 | disposition home or self-care (01) ==
LOC: DI 13:39
PROVIDERS: ATTEND Psychiatry & Neurology Neurology
DX: R51 Headache (principal)
CPT/HCPCS: 70544

== ENCOUNTER 2019-02-09 10:41 | Outpatient (CLI) | payer BC ==
--- NOTE | 2019-02-13 16:12 | Mammography Report ---
Reason: SCREENING MAMMO Procedure Date: 02/09/2019 Accession Number: [id number] / [id number] Procedure: SUDARSHAN - Screening Mammo w/Cy CPT Code: FULL RESULT: EXAM: Screening Mammo w/Cy DATE: 02/09/2019 11:25 AM CLINICAL HISTORY: Routine screening TECHNIQUE: (B) - Bilateral CC and MLO views were obtained. COMPARISON: 02/08/2018, 01/20/2017, 01/21/2016 and 12/18/2014 PARENCHYMAL PATTERN: (A) - The breasts demonstrate scattered fibroglandular densities bilaterally. FINDINGS: No significant interval change. There are no suspicious masses, calcifications, or areas of distortion. IMPRESSION: Negative examination. BI-RADS category 1. RECOMMENDATION: (ANNUAL) - Recommend routine annual screening mammography. BI-RADS CATEGORY: (1) - Negative. STANDARD QUALIFYING STATEMENTS: 1. This examination was not reviewed with the aid of Computer-Aided Detection (CAD). 2. A negative or benign imaging report should not preclude biopsy if clinically suspicious findings are present. 3. Dense breasts may obscure an underlying neoplasm. 4. This examination was reviewed with the aid of 3D breast imaging (tomosynthesis).
== END 2019-02-09 10:42 | disposition home or self-care (01) ==
LOC: DI 10:41
PROVIDERS: ATTEND Internal Medicine
DX: Z12.31 Encounter for screening mammogram for malignant neoplasm of breast (principal)
CPT/HCPCS: 77063; 77067

== ENCOUNTER 2019-06-06 09:22 | Outpatient (CLI) | payer BC ==
--- NOTE | 2019-06-06 09:53 | CT Report ---
Reason: HEADACHE, NAUSEA Procedure Date: 06/06/2019 Accession Number: [id number] / [id number] Procedure: CT - HEAD WO CPT Code: Final Report FULL RESULT: EXAM: CT HEAD EXAM DATE: 06/06/2019 09:36 AM. CLINICAL HISTORY: HEADACHE, NAUSEA. COMPARISON: HEAD W/O 01/26/2017 12:45 PM. TECHNIQUE: Multiaxial CT images were obtained from the foramen magnum to the vertex. Reformats: Sagittal and coronal. IV contrast: None. In accordance with CT protocol optimization, one or more of the following dose reduction techniques were utilized for this exam: automated exposure control, adjustment of mA and/or KV based on patient size, or use of iterative reconstructive technique. FINDINGS: Parenchyma: No intraparenchymal hemorrhage. No evidence of mass, midline shift, or CT findings of acute infarction. Morillo-white differentiation is distinct. Mild chronic microangiopathic white matter changes. Extraaxial Spaces: Normal for age. No subdural or epidural collections. Ventricles: The ventricles and cortical sulci are enlarged, consistent with age-related tissue loss. Sinuses and orbits: Imaged paranasal sinuses, orbits, and mastoids show no significant abnormality. Bones: Unremarkable. Other: None. IMPRESSION: Generalized age-related cortical atrophic changes without evidence of acute intracranial abnormality. RAD[facility] The call report notification system was initiated by Dr. Shyam Beckman at 09:52 AM on 06/06/2019.
== END 2019-06-06 09:23 | disposition home or self-care (01) ==
LOC: DI 09:22
PROVIDERS: ATTEND Internal Medicine
DX: R51 Headache (principal); R11.0 Nausea
CPT/HCPCS: 70450

== ENCOUNTER 2020-03-04 15:24 | Outpatient (CLI) | payer BC | END 2020-03-04 15:25 | disposition home or self-care (01) | LOC: LAB 15:24 | PROVIDERS: ATTEND Internal Medicine | DX: B34.9 Viral infection, unspecified (principal); Z20.828 Contact with and (suspected) exposure to other viral communicable diseases ==

== ENCOUNTER 2020-11-19 11:36 | Emergency (ER) | payer BC ==
--- NOTE | 2020-11-19 12:05 | ED Physician Documentation ---
History of Present Illness - Stated complaint Stated Complaint: DR CHILDS/JONATAN PX - Chief complaint Chief Complaint: Ext Problem - Additonal information Additional information: 75-year-old female presents the emergency department for evaluation of left medial thigh pain that began about 4 to 5 days ago. She reports having a similar pain about 4 years ago in which she was diagnosed with a DVT in the left leg. She did complete a course of Xarelto for about 3 months. No identifying cause was found. She denies any recent travel, surgery or immobilization. 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 She denies chest pain or shortness of air. There is no swelling in this leg. No recent fevers abdominal pain nausea or vomiting. Review of Systems Constitutional: reports: Reviewed and negative Ears: reports: Reviewed and negative Nose: reports: Reviewed and negative Throat: reports: Reviewed and negative Cardiac: denies: Chest pain / pressure, Palpitations Respiratory: denies: Dyspnea, Cough GI: reports: Reviewed and negative : reports: Reviewed and negative Skin: reports: Reviewed and negative Musculoskeletal: reports: Extremity pain (Left medial thigh) PD PAST MEDICAL HISTORY - Past Medical History Cardiovascular: Hypertension, Deep vein thrombosis Respiratory: Asthma, COPD Endocrine/Autoimmune: Type 2 diabetes GI: GERD, Hiatal hernia 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: 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 : None HEENT: None Psych: Panic attacks Musculoskeletal: Fibromyalgia Derm: None - Past Surgical History Past Surgical History: Yes General: Appendectomy, Colonoscopy HEENT: Tonsil/Adenoidectomy - Present Medications Home Medications: Ambulatory Orders Medication Instructions Recorded Confirmed Calcium Carbonate/Vitamin D3 1 tab PO DAILY 12/26/12 01/25/18 [Calcium + Vitamin D Tablet] Famotidine [Pepcid] 40 mg PO DAILY 12/26/12 01/21/18 Sitagliptin Phosphate [Januvia] 100 mg PO DAILY 12/26/12 01/21/18 ALPRAZolam [Xanax] 1 - 2 tab PO QPM PRN 06/05/13 01/25/18 Amlodipine Besylate 5 mg PO DAILY 06/30/16 01/25/18 Losartan [Cozaar] 50 mg PO BID 06/30/16 01/25/18 Aspirin 1 tab PO DAILY 11/11/16 01/25/18 Cannabis Cbd PRN 11/11/16 Cromolyn Sodium [Gastrocrom] 10 ml PO QID 11/11/16 01/21/18 Fexofenadine HCl [Pauline Allergy] 180 mg DAILY 11/11/16 01/25/18 Ketotifen 2 Pills Daily 1 tab PO BID 11/11/16 01/25/18 Multivitamin [Multivitamins] 1 tab DAILY 11/11/16 01/25/18 Omeprazole [PriLOSEC] 40 mg PO DAILY 11/11/16 01/25/18 dexAMETHasone [Decadron] 4 mg PO DAILY #5 tablet 11/11/16 01/25/18 Clobetasol 0.05% Oint [Temovate 1 applic TOP PRN PRN 01/25/18 01/25/18 0.05% Oint] Fexofenadine HCl [Pauline Allergy] 60 mg PO DAILY 01/25/18 01/25/18 diphenhydrAMINE [Benadryl] 200 mg PO ONCE PRN 01/25/18 01/25/18 - Allergies Allergies/Adverse Reactions: Allergies Allergy/AdvReac Type Severity Reaction Status Date / Time amoxicillin [Amoxicillin] Allergy Intermediate Respiratory Verified 01/25/18 06:44 Beta-Blockers Allergy Intermediate Respiratory Verified 01/25/18 06:44 (Beta-Adrenergic Bloc guaifenesin [From Humibid] Allergy Intermediate Respiratory Verified 01/25/18 06:44 Penicillins Allergy Intermediate Respiratory Verified 01/25/18 06:44 prednisone Allergy Intermediate Respiratory Verified 01/25/18 06:44 Sulfa (Sulfonamide Allergy Intermediate Respiratory Verified 01/25/18 06:44 Antibiotics) tetracaine Allergy Intermediate Respiratory Verified 01/25/18 06:44 tetracycline [Tetracycline] Allergy Intermediate Respiratory Verified 01/25/18 06:44 tramadol HCl * [From Ultram] Allergy Intermediate Respiratory Verified 11/19/20 11:49 fluoxetine HCl * Allergy Mild Respiratory Verified 11/19/20 11:49 [From Prozac] budesonide Allergy Unknown Verified 11/19/20 11:49 bupropion HCl * Allergy Unknown Verified 11/19/20 11:49 [From Wellbutrin] ciclesonide [From Omnaris] Allergy Unknown Verified 11/19/20 11:49 clonidine Allergy Unknown Verified 11/19/20 11:49 hydrocortisone Allergy Unknown Verified 11/19/20 11:49 latex Allergy Rash Verified 11/19/20 11:49 Latex, Natural Rubber Allergy Rash Verified 11/19/20 11:49 methylprednisolone Allergy Unknown Verified 11/19/20 11:49 [From Medrol] succinylcholine Allergy Maglignant Verified 11/19/20 11:49 Hyperthermia terazosin Allergy Unknown Verified 11/19/20 11:49 amitriptyline HCl * AdvReac Unknown Verified 11/19/20 11:49 [From Elavil] gabapentin [From Neurontin] AdvReac Unknown Verified 11/19/20 11:49 nortriptyline AdvReac Unknown Verified 11/19/20 11:49 2-bromo-2 nitropropane Allergy Unknown Uncoded 11/19/20 11:49 acrylics Allergy Unknown Uncoded 11/19/20 11:49 balsam donald Allergy Unknown Uncoded 11/19/20 11:49 glyceryl thioglycolate Allergy Unknown Uncoded 11/19/20 11:49 HRT Allergy Unknown Uncoded 11/19/20 11:49 iodopropynyl butyl carbamate Allergy Unknown Uncoded 11/19/20 11:49 rolo Allergy Unknown Uncoded 11/19/20 11:49 sulfate Allergy Unknown Uncoded 11/19/20 11:49 bellamine AdvReac Unknown Uncoded 11/19/20 11:49 - Social History Does the pt smoke?: No Smoking Status: Never smoker Does the pt drink ETOH?: Yes - Immunizations Immunizations are current?: Yes - POLST Patient has POLST: No PD ED PE EXPANDED - General General: Alert, No acute distress, Well developed/nourished - Cardiac Cardiac: Regular Rate, Radial strong equal, Pedal strong equal, Cap refill < 2 sec. No: Murmur Present - Respiratory Respiratory: Clear to ausultation vanda. No: Distress, Labored - Extremities Extremities: Left thigh (Focal pain left medial thigh just above the knee. Normal flexion extension of the knee. No swelling or erythema associated with focal pain.), Pedal Pulses Present. No: Pedal edema bilateral, Right calf TTP/cord, Left calf TTP/cord Results - Vitals Vitals: Vital Signs - 24 hr 11/19/20 11/19/20 11:42 12:24 Temperature 36.0 C L 36.4 C L Heart Rate 98 88 Respiratory 16 19 Rate Blood Pressure 147/82 H 127/85 H O2 Saturation 97 97 Oxygen O2 Source Room air - Rads (name of study) Left leg DVT US Radiology: Final report received (Negative for deep vein thrombosis of the left lower extremity) PD MEDICAL DECISION MAKING - ED course Complexity details: reviewed results, re-evaluated patient, d/w patient, d/w family ED course: 75 old female presents the emergency department for 3 days of left medial thigh pain that feels similar to when she was diagnosed with a DVT about 4 years ago. Thigh pain that feels similar to when she was diagnosed with a DVT about 4 years ago. She has no leg swelling erythema or calf pain tenderness. US today negative for DVT. no findings to suggest cellulitis. Emergent return precautions discussed Departure - Departure Disposition: 01 Home, Self Care Clinical Impression: Left thigh pain Condition: Stable Record reviewed to determine appropriate education?: Yes Comments: The ultrasound today does not show any blood clot. Continue to discuss this ED visit with your primary care provider. If you develop swelling, redness have any chest pain or shortness of air please return to the ER for second evaluation.
[2020-11-19 12:24] VITALS: BP 127/85
--- NOTE | 2020-11-19 12:39 | Ultrasound Report ---
PROCEDURE: Duplex Ext Veins Left INDICATIONS: right medial thigh pain; hx of dvt TECHNIQUE: Real-time imaging, as well as color and pulse Doppler interrogation, were performed of the lower extr emity deep veins from the inguinal ligament to the popliteal fossa. COMPARISON: 01/18/2019 FINDINGS: The deep veins are normally compressible, and free of intraluminal thrombus. Color and pu lse Doppler demonstrate normal phasic intraluminal flow. There is normal augmentation response to di stal compression maneuver. IMPRESSION: Negative for deep venous thrombosis of the left lower extremity. Reviewed by: Cornelius Mehta MD on 11/19/2020 12:38 PM PDT Approved by: Cornelius Mehta MD on 11/19/2020 12:38 PM PDT Station ID: [id number]
== END 2020-11-19 12:55 | disposition home or self-care (01) ==
LOC: ED 11:36
DX: M79.652 Pain in left thigh (principal); Z86.718 Personal history of other venous thrombosis and embolism; E11.9 Type 2 diabetes mellitus without complications; Z79.4 Long term (current) use of insulin; I10 Essential (primary) hypertension
CPT/HCPCS: 99282; 99284

== ENCOUNTER 2020-12-19 14:09 | Outpatient (CLI) | payer BC ==
--- NOTE | 2020-12-19 17:33 | DEXA Report ---
PROCEDURE: Dexa Spine and/or Hip INDICATIONS: SCREENING OSTEOPOROSIS TECHNIQUE: Dual energy x-ray absorptiometry (DXA) was performed on a Real Time Tomography System. Regions measur ed are the AP Spine, femoral neck, and if needed forearm. COMPARISON: None. FINDINGS: Lumbar Spine: Bone Mineral Density 1.105 g/cm/cm,T score -0.6, normal Left Hip: Bone Mineral Density 0.877 g/cm/cm,T score -1.0, normal Left Femoral Neck: Bone Mineral Density 0.839 g/cm/cm, T score -1.4, osteopenia (T score greater or equal to -1.0: NORMAL) (T score from -1.1 to -2.4: OSTEOPENIA) (T score less than or equal to -2.5 to: OSTEOPOROSIS) Impression: Osteopenia. Patients with diagnosis of osteoporosis or osteopenia should have regular bone mineral density assess ment. For those eligible for Medicare, routine testing is allowed once every 2 years. Testing frequ ency can be increased for patients who have rapidly progressing disease or for those who are receivin g medical therapy to restore bone mass. Reviewed by: Melanie Colmenares MD, PhD on 12/19/2020 5:31 PM PDT Approved by: Melanie Colmenares MD, PhD on 12/19/2020 5:31 PM PDT Station ID: [id number]
== END 2020-12-19 14:10 | disposition home or self-care (01) ==
LOC: DI 14:09
PROVIDERS: ATTEND Internal Medicine Rheumatology
DX: Z13.820 Encounter for screening for osteoporosis (principal); M85.88 Other specified disorders of bone density and structure, other site

== ENCOUNTER 2021-01-15 09:06 | Emergency (ER) | payer BC ==
[2021-01-15 09:28] VITALS: BP 138/96
[2021-01-15] MEDS ORDERED: ONDANSETRON ODT 4 MG TABLET TL STA (09:42)
--- NOTE | 2021-01-15 10:27 | CT Report ---
PROCEDURE: HEAD WO INDICATIONS: Trauma, fall from ladder, head injury, worsening SALDAÑA TECHNIQUE: Noncontrast 4.5 mm thick angled axial sections acquired from the foramen magnum to the vertex. For r adiation dose reduction, the following was used: automated exposure control, adjustment of mA and/or kV according to patient size. COMPARISON: None. FINDINGS: Image quality: Excellent. CSF spaces: Basal cisterns are patent. No extra-axial fluid collections. Ventricles are normal in size and shape. Brain: No midline shift. No intracranial masses or hemorrhage. Morillo-white matter interface is norm al. Skull and face: Calvarium and visualized facial bones are intact, without suspicious lesions. Sinuses: Visualized sinuses and mastoids are clear. IMPRESSION: No acute intracranial finding. Reviewed by: Marlo Mesa MD on 01/15/2021 10:26 AM PDT Approved by: Marlo Mesa MD on 01/15/2021 10:26 AM PDT Station ID: [id number]
--- NOTE | 2021-01-15 10:53 | ED Physician Documentation ---
PD HPI HEAD INJURY - Stated complaint Stated Complaint: FALL/HIT HEAD - Chief complaint Chief Complaint: Trauma Hd/Nk - History obtained from History obtained from: Patient, Family - Additional information Additional information: Pt comes to ED complaining of worsened SALDAÑA since falling from step ladder 5 days ago and hitting back of head on the edge of her stove. No LOC. Pt denies ataxia. She has had a little nausea and dizziness, which was pre-existing, and does not seem worsened. No fever/chills. No anticoagulation. No spinal pain. Review of Systems Ten Systems: 10 systems reviewed and negative Constitutional: reports: Reviewed and negative Eyes: reports: Reviewed and negative Ears: reports: Reviewed and negative Nose: reports: Reviewed and negative Throat: reports: Reviewed and negative Cardiac: reports: Reviewed and negative Respiratory: reports: Reviewed and negative GI: reports: Reviewed and negative : reports: Reviewed and negative Skin: reports: Reviewed and negative Musculoskeletal: reports: Reviewed and negative Neurologic: reports: Headache, Head injury Psychiatric: reports: Reviewed and negative Endocrine: reports: Reviewed and negative Immunocompromised: reports: Reviewed and negative PD PAST MEDICAL HISTORY - Past Medical History Cardiovascular: Hypertension, Deep vein thrombosis Respiratory: Asthma, COPD Endocrine/Autoimmune: Type 2 diabetes GI: GERD, Hiatal hernia [employer]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 : None HEENT: None Psych: Panic attacks Musculoskeletal: Fibromyalgia Derm: None - Past Surgical History Past Surgical History: Yes General: Appendectomy, Colonoscopy HEENT: Tonsil/Adenoidectomy - Present Medications Home Medications: Ambulatory Orders Medication Instructions Recorded Confirmed Calcium Carbonate/Vitamin D3 1 tab PO DAILY 12/26/12 01/25/18 [Calcium + Vitamin D Tablet] Famotidine [Pepcid] 40 mg PO DAILY 12/26/12 01/21/18 Sitagliptin Phosphate [Januvia] 100 mg PO DAILY 12/26/12 01/21/18 ALPRAZolam [Xanax] 1 - 2 tab PO QPM PRN 06/05/13 01/25/18 Amlodipine Besylate 5 mg PO DAILY 06/30/16 01/25/18 Losartan [Cozaar] 50 mg PO BID 06/30/16 01/25/18 Aspirin 1 tab PO DAILY 11/11/16 01/25/18 Cannabis Cbd PRN 11/11/16 Cromolyn Sodium [Gastrocrom] 10 ml PO QID 11/11/16 01/21/18 Fexofenadine HCl [Pauline Allergy] 180 mg DAILY 11/11/16 01/25/18 Ketotifen 2 Pills Daily 1 tab PO BID 11/11/16 01/25/18 Multivitamin [Multivitamins] 1 tab DAILY 11/11/16 01/25/18 Omeprazole [PriLOSEC] 40 mg PO DAILY 11/11/16 01/25/18 dexAMETHasone [Decadron] 4 mg PO DAILY #5 tablet 11/11/16 01/25/18 Clobetasol 0.05% Oint [Temovate 1 applic TOP PRN PRN 01/25/18 01/25/18 0.05% Oint] Fexofenadine HCl [Pauline Allergy] 60 mg PO DAILY 01/25/18 01/25/18 diphenhydrAMINE [Benadryl] 200 mg PO ONCE PRN 01/25/18 01/25/18 - Allergies Allergies/Adverse Reactions: Allergies Allergy/AdvReac Type Severity Reaction Status Date / Time amoxicillin [Amoxicillin] Allergy Intermediate Respiratory Verified 01/25/18 06:44 Beta-Blockers Allergy Intermediate Respiratory Verified 01/25/18 06:44 (Beta-Adrenergic Bloc guaifenesin [From Humibid] Allergy Intermediate Respiratory Verified 01/25/18 06:44 Penicillins Allergy Intermediate Respiratory Verified 01/25/18 06:44 prednisone Allergy Intermediate Respiratory Verified 01/25/18 06:44 Sulfa (Sulfonamide Allergy Intermediate Respiratory Verified 01/25/18 06:44 Antibiotics) tetracaine Allergy Intermediate Respiratory Verified 01/25/18 06:44 tetracycline [Tetracycline] Allergy Intermediate Respiratory Verified 01/25/18 06:44 tramadol HCl * [From Ultram] Allergy Intermediate Respiratory Verified 11/19/20 11:49 fluoxetine HCl * Allergy Mild Respiratory Verified 11/19/20 11:49 [From Prozac] budesonide Allergy Unknown Verified 11/19/20 11:49 bupropion HCl * Allergy Unknown Verified 11/19/20 11:49 [From Wellbutrin] ciclesonide [From Omnaris] Allergy Unknown Verified 11/19/20 11:49 clonidine Allergy Unknown Verified 11/19/20 11:49 hydrocortisone Allergy Unknown Verified 11/19/20 11:49 latex Allergy Rash Verified 11/19/20 11:49 Latex, Natural Rubber Allergy Rash Verified 11/19/20 11:49 methylprednisolone Allergy Unknown Verified 11/19/20 11:49 [From Medrol] succinylcholine Allergy Maglignant Verified 11/19/20 11:49 Hyperthermia terazosin Allergy Unknown Verified 11/19/20 11:49 amitriptyline HCl * AdvReac Unknown Verified 11/19/20 11:49 [From Elavil] gabapentin [From Neurontin] AdvReac Unknown Verified 11/19/20 11:49 nortriptyline AdvReac Unknown Verified 11/19/20 11:49 2-bromo-2 nitropropane Allergy Unknown Uncoded 11/19/20 11:49 acrylics Allergy Unknown Uncoded 11/19/20 11:49 balsam donald Allergy Unknown Uncoded 11/19/20 11:49 glyceryl thioglycolate Allergy Unknown Uncoded 11/19/20 11:49 HRT Allergy Unknown Uncoded 11/19/20 11:49 iodopropynyl butyl carbamate Allergy Unknown Uncoded 11/19/20 11:49 rolo Allergy Unknown Uncoded 11/19/20 11:49 sulfate Allergy Unknown Uncoded 11/19/20 11:49 bellamine AdvReac Unknown Uncoded 11/19/20 11:49 - Social History Does the pt smoke?: No Smoking Status: Never smoker Does the pt drink ETOH?: Yes - Immunizations Immunizations are current?: Yes - POLST Patient has POLST: No PD ED PE NORMAL - Vitals Vital signs reviewed: Yes - General General: Alert and oriented X 3, No acute distress, Well developed/nourished - HEENT HEENT: PERRL, EOMI, Moist mucous membranes, Other (Slight swelling and contusion over lateral L occiput. 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 We have discussed symptomatic management at home, as well as the usual indications for return and follow-up. Departure - Departure Disposition: 01 Home, Self Care Clinical Impression: Closed head injury Qualifiers: Encounter type: initial encounter Qualified Code(s): S09.90XA - Unspecified injury of head, initial encounter Migraine Qualifiers: Migraine type: unspecified Status migrainosus presence: without status migrainosus Intractability: not intractable Qualified Code(s): G43.909 - Migraine, unspecified, not intractable, without status migrainosus Condition: Stable Instructions: ED Head Injury Closed, ED Headache Migraine Comments: Your head CT looks goodno evidence of any bleeding or skull fracture. You may feel some degree of headache, dizziness, and nausea as a normal sequela of concussion; however, this should resolve on its own in several days to week. You may take your normal migraine medicines as needed. Please follow with your primary doctor as needed, as well. Discharge Date/Time: 01/15/21 11:01
== END 2021-01-15 11:01 | disposition home or self-care (01) ==
LOC: ED 09:06
DX: S09.90XA Unspecified injury of head, initial encounter (principal); W11.XXXA Fall on and from ladder, initial encounter; Y92.000 Kitchen of unspecified non-institutional (private) residence as the place of occurrence of the external cause; G43.909 Migraine, unspecified, not intractable, without status migrainosus; I10 Essential (primary) hypertension; J44.9 Chronic obstructive pulmonary disease, unspecified; E11.9 Type 2 diabetes mellitus without complications; F41.0 Panic disorder [episodic paroxysmal anxiety]; M79.7 Fibromyalgia; Z79.82 Long term (current) use of aspirin; Z79.52 Long term (current) use of systemic steroids; Z79.899 Other long term (current) drug therapy
CPT/HCPCS: 70450; 99284; Q0162

== ENCOUNTER 2021-01-29 08:08 | Outpatient (CLI) | payer BC ==
--- NOTE | 2021-01-29 10:08 | MRI Report ---
PROCEDURE: Brain W/O INDICATIONS: SALDAÑA, HEAD TRAUMA, MEMORY LOSS, DIZZINESS TECHNIQUE: Noncontrast axial T1 spin echo, axial T2 fast spin echo, sagittal and axial FLAIR, coronal T2 fast sp in echo, axial gradient echo, axial diffusion and ADC through the brain. COMPARISON: 12/17/2018. Correlation is made with head CT, 01/15/2021 FINDINGS: Image quality: Excellent. CSF Spaces: Basal cisterns are patent. Mild bilateral chronic subdural hygromas can be seen. Ventric les are normal in size and shape. Brain: No intracranial masses or hemorrhage. Morillo/white matter interface is normal. Brainstem appe ars normal. Diffusion-weighted images demonstrate no acute ischemic insult. No chronic ischemic ins ults. Normal intravascular flow voids are present. Skull and face: Calvarium has normal marrow signal. Orbits appear normal. Sinuses: Sinuses and mastoids are clear. IMPRESSION: No acute intracranial abnormality is seen. No findings of acute or subacute infarction are seen. Age-appropriate brain parenchymal volume loss and chronic small vessel ischemic change can be seen. Chronic bilateral subdural hygromas can be seen. Reviewed by: Jose G Sarabia MD on 01/29/2021 9:06 AM AMANDA Approved by: Jose G Sarabia MD on 01/29/2021 9:06 AM AMANDA Station ID: [id number]
== END 2021-01-29 08:09 | disposition home or self-care (01) ==
LOC: DI 08:08
PROVIDERS: ATTEND Internal Medicine
DX: S09.90XA Unspecified injury of head, initial encounter (principal); R51.0 Headache with orthostatic component, not elsewhere classified; R41.3 Other amnesia; R42 Dizziness and giddiness

== ENCOUNTER 2021-07-10 08:00 | Outpatient (CLI) | payer BC ==
[2021-07-10 16:31] LABS: BILIRUBIN,URINE NEGATIVE (NEGATIVE); GLUCOSE, URINE (UA) NEGATIVE (NEGATIVE); KETONES,URINE (UA) NEGATIVE (NEGATIVE); LEUKOCYTE ESTERASE, URINE NEGATIVE (NEGATIVE); NITRITE,URINE NEGATIVE (NEGATIVE); OCCULT BLOOD,URINE NEGATIVE (NEGATIVE); PROTEIN,URINE NEGATIVE (NEGATIVE); UROBILINOGEN,URINE 0.2 (NORMAL) E.U./dL (NORMAL)
[2021-07-10 16:38] LABS: CREATININE,URINE 72.1 mg/dL; MICROALBUM/CREATININE RATIO,UR 2.8 ug/mg (<30.0); MICROALBUMIN,URINE 0.2 mg/dL (0-300.0)
[2021-07-10 16:43] LABS: CLARITY,URINE CLEAR (CLEAR)
[2021-07-10 16:51] LABS: ALBUMIN 4.1 g/dL (3.2-5.5); ALBUMIN/GLOBULIN RATIO 1.2 (1.0-2.2); ALKALINE PHOSPHATASE 80 IU/L (42-121); ALT ALANINE AMINOTRANSFERASE 15 IU/L (10-60); AST ASPARTATE AMINOTRANSFERASE 14 IU/L (10-42); BILIRUBIN,TOTAL 0.8 mg/dL (0.2-1.0); BUN - BLOOD UREA NITROGEN 28 mg/dL (6-20); CALCIUM 9.1 mg/dL (8.5-10.3); CARBON DIOXIDE - CO2 22 mmol/L (21-32); CHLORIDE 105 mmol/L (101-111); CHOLESTEROL 254 mg/dL; GFR - MDRD 54 (>89); GLUCOSE 116 mg/dL (70-100); HDL CHOLESTEROL 84 mg/dL; LDL CHOLESTEROL,CALCULATED 143 mg/dL; LDL/HDL RATIO 1.7 (<4.4); POTASSIUM 3.6 mmol/L (3.5-5.0); SODIUM 138 mmol/L (135-145); TOTAL PROTEIN 7.5 g/dL (6.7-8.2); TRIGLYCERIDES 137 mg/dL; VLDL CHOLESTEROL 27 mg/dL
== END 2021-07-10 23:59 ==
LOC: LAB.R 08:00
PROVIDERS: ATTEND Internal Medicine
DX: Z00.00 Encounter for general adult medical examination without abnormal findings (principal); K59.00 Constipation, unspecified; R53.83 Other fatigue; R51.9 Headache, unspecified; R10.31 Right lower quadrant pain
CPT/HCPCS: 80053; 80061; 81001; 81003; 82043; 82570; 83721; 84443; 87086

== ENCOUNTER 2021-07-14 08:00 | Outpatient (CLI) | payer BC ==
[2021-07-14 16:45] LABS: BASOPHILS # (AUTO) 0.1 10^3/uL (0.0-0.1); BASOPHILS % (AUTO) 0.6 %; EOSINOPHILS # (AUTO) 0.1 10^3/uL (0.0-0.7); EOSINOPHILS % (AUTO) 0.8 %; HCT - HEMATOCRIT 45.2 % (37.0-47.0); HGB - HEMOGLOBIN 14.4 g/dL (12.0-16.0); LYMPHOCYTES # (AUTO) 3.2 10^3/uL (1.5-3.5); LYMPHOCYTES % (AUTO) 26.7 %; MEAN CORPUSCULAR HEMOGLOBIN 29.3 pg (27.0-31.0); MEAN CORPUSCULAR HGB CONC 31.9 g/dL (32.0-36.0); MEAN CORPUSCULAR VOLUME 91.9 fL (81.0-99.0); MEAN PLATELET VOLUME 11.1 fL (7.9-10.8); MONOCYTES # (AUTO) 0.7 10^3/uL (0.0-1.0); NEUTROPHILS # (AUTO) 7.9 10^3/uL (1.5-6.6); NEUTROPHILS % (AUTO) 65.3 %; PLT - PLATELET COUNT 260 10^3/uL (130-450); RED BLOOD COUNT 4.92 10^6/uL (4.20-5.40); RED CELL DISTRIBUTION WIDTH 13.8 % (12.0-15.0); WHITE BLOOD COUNT 12.1 x10^3/uL (4.8-10.8)
[2021-07-14 20:07] LABS: ESTIMATED AVERAGE GLUCOSE 151 mg/dL (70-100); HEMOGLOBIN A1c% 6.9 % (4.27-6.07)
== END 2021-07-14 23:59 ==
LOC: LAB.R 08:00
PROVIDERS: ATTEND Internal Medicine
DX: I10 Essential (primary) hypertension (principal); E11.9 Type 2 diabetes mellitus without complications
CPT/HCPCS: 83036; 85025

== ENCOUNTER 2021-09-15 17:00 | Outpatient (CLI) | payer BC ==
--- NOTE | 2021-09-16 15:42 | Mammography Report ---
BILATERAL DIGITAL SCREENING MAMMOGRAM 3D/2D: 09/15/2021 CLINICAL: Routine screening. Comparison is made to exams dated: 02/09/2019 mammogram, 02/07/2018 mammogram, and 12/21/2016 mammogram - [facility]. There are scattered fibroglandular elements in both breasts. No significant masses, calcifications, or other findings are seen in either breast. There has been no significant interval change. IMPRESSION: NEGATIVE There is no mammographic evidence of malignancy. A 1 year screening mammogram is recommended. This exam was interpreted at Station ID: [id number]. NOTE: For mammograms, a report in lay terms will be sent to the patient. Approximately 15% of breast malignancies will not be visualized mammographically. In the management of a palpable breast mass, a negative mammogram must not discourage biopsy of a clinically suspicious lesion. Electronically Signed By: Crista polanco/bettinarad:09/16/2021 08:49:57 ACR BI-RADS Category 1: Negative 3341F PARENCHYMAL PATTERN: (A) - The breast(s) demonstrate(s) scattered fibroglandular densities. BI-RADS CATEGORY: (1) - 1 RECOMMENDATION: (ANNUAL) - Recommend routine annual screening mammography. [id number] 1 year screening LATERALITY: (B)
== END 2021-09-15 17:01 | disposition home or self-care (01) ==
LOC: DI.S 17:00
PROVIDERS: ATTEND Internal Medicine
DX: Z12.31 Encounter for screening mammogram for malignant neoplasm of breast (principal)

== ENCOUNTER 2022-02-11 11:18 | Outpatient (CLI) | payer BC ==
[2022-02-11 11:33] LABS: BASOPHILS # (AUTO) 0.1 10^3/uL (0.0-0.1); BASOPHILS % (AUTO) 0.7 %; EOSINOPHILS # (AUTO) 0.2 10^3/uL (0.0-0.7); EOSINOPHILS % (AUTO) 1.8 %; HCT - HEMATOCRIT 45.2 % (37.0-47.0); HGB - HEMOGLOBIN 14.8 g/dL (12.0-16.0); LYMPHOCYTES # (AUTO) 3.3 10^3/uL (1.5-3.5); LYMPHOCYTES % (AUTO) 31.4 %; MEAN CORPUSCULAR HEMOGLOBIN 29.1 pg (27.0-31.0); MEAN CORPUSCULAR HGB CONC 32.7 g/dL (32.0-36.0); MEAN CORPUSCULAR VOLUME 88.8 fL (81.0-99.0); MONOCYTES # (AUTO) 0.6 10^3/uL (0.0-1.0); NEUTROPHILS # (AUTO) 6.3 10^3/uL (1.5-6.6); NEUTROPHILS % (AUTO) 59.3 %; PLT - PLATELET COUNT 275 10^3/uL (130-450); RED BLOOD COUNT 5.09 10^6/uL (4.20-5.40); RED CELL DISTRIBUTION WIDTH 13.6 % (12.0-15.0); WHITE BLOOD COUNT 10.6 x10^3/uL (4.8-10.8)
[2022-02-11 11:45] LABS: CALCIUM 9.4 mg/dL (8.5-10.3); CREATININE 0.9 mg/dL (0.4-1.0); MAGNESIUM 2.3 mg/dL (1.7-2.8); POTASSIUM 3.9 mmol/L (3.5-5.0)
== END 2022-02-11 11:19 | disposition home or self-care (01) ==
LOC: LAB 11:18
PROVIDERS: ATTEND Internal Medicine
DX: D72.0 Genetic anomalies of leukocytes (principal); R20.2 Paresthesia of skin; Z79.899 Other long term (current) drug therapy
CPT/HCPCS: 36415; 80048; 82607; 83735; 85025

== ENCOUNTER 2022-03-19 11:17 | Outpatient (CLI) | payer BC ==
--- NOTE | 2022-03-19 16:32 | XRAY Report ---
PROCEDURE: Shoulder 3 View RT INDICATIONS: SHOULDER PX TECHNIQUE: 3 views of the shoulder were acquired. COMPARISON: None. FINDINGS: Bones: No fractures or dislocations. No suspicious bony lesions. Visualized ribs appear intact. M oderate acromioclavicular as well as mild to moderate glenohumeral degenerative narrowing. Soft tissues: No suspicious soft tissue calcifications. IMPRESSION: Glenohumeral and acromioclavicular arthritic change. Reviewed by: Gabriela Cason MD on 03/19/2022 4:31 PM PDT Approved by: Gabriela Cason MD on 03/19/2022 4:31 PM PDT Station ID: [id number]
== END 2022-03-19 11:18 | disposition home or self-care (01) ==
LOC: DI 11:17
PROVIDERS: ATTEND Internal Medicine
DX: M19.011 Primary osteoarthritis, right shoulder (principal)

== ENCOUNTER 2022-07-27 08:50 | Outpatient (CLI) | payer BC ==
[2022-07-27 09:13] LABS: BASOPHILS # (AUTO) 0.1 10^3/uL (0.0-0.1); BASOPHILS % (AUTO) 0.7 %; EOSINOPHILS # (AUTO) 0.2 10^3/uL (0.0-0.7); EOSINOPHILS % (AUTO) 2.4 %; HGB - HEMOGLOBIN 14.5 g/dL (12.0-16.0); LYMPHOCYTES # (AUTO) 3.3 10^3/uL (1.5-3.5); LYMPHOCYTES % (AUTO) 35.3 %; MEAN CORPUSCULAR HEMOGLOBIN 28.8 pg (27.0-31.0); MEAN CORPUSCULAR VOLUME 87.5 fL (81.0-99.0); MEAN PLATELET VOLUME 10.2 fL (7.9-10.8); MONOCYTES # (AUTO) 0.6 10^3/uL (0.0-1.0); MONOCYTES % (AUTO) 6.8 %; NEUTROPHILS # (AUTO) 5.1 10^3/uL (1.5-6.6); NEUTROPHILS % (AUTO) 54.4 %; PLT - PLATELET COUNT 274 10^3/uL (130-450); RED BLOOD COUNT 5.03 10^6/uL (4.20-5.40); RED CELL DISTRIBUTION WIDTH 13.2 % (12.0-15.0); WHITE BLOOD COUNT 9.5 x10^3/uL (4.8-10.8)
[2022-07-27 09:40] LABS: ALBUMIN 3.8 g/dL (3.2-5.5); ALBUMIN/GLOBULIN RATIO 1.2 (1.0-2.2); ALKALINE PHOSPHATASE 88 IU/L (42-121); ALT ALANINE AMINOTRANSFERASE 16 IU/L (10-60); AST ASPARTATE AMINOTRANSFERASE 15 IU/L (10-42); BILIRUBIN,TOTAL 0.4 mg/dL (0.2-1.0); BUN - BLOOD UREA NITROGEN 22 mg/dL (6-20); CALCIUM 9.2 mg/dL (8.5-10.3); CARBON DIOXIDE - CO2 27 mmol/L (21-32); CHLORIDE 102 mmol/L (101-111); CHOL/HDL RATIO 2.8 (<4.4); CHOLESTEROL 255 mg/dL; CREATININE 0.9 mg/dL (0.4-1.0); GFR - MDRD 61 (>89); GLUCOSE 156 mg/dL (70-100); HDL CHOLESTEROL 91 mg/dL; LDL CHOLESTEROL,CALCULATED 146 mg/dL; LDL/HDL RATIO 1.6 (<4.4); POTASSIUM 3.9 mmol/L (3.5-5.0); SODIUM 136 mmol/L (135-145); TRIGLYCERIDES 90 mg/dL; VLDL CHOLESTEROL 18 mg/dL
[2022-07-27 09:51] LABS: CREATININE,URINE 99.9 mg/dL; MICROALBUMIN,URINE 0.7 mg/dL (0-300.0)
[2022-07-27 13:05] LABS: ESTIMATED AVERAGE GLUCOSE 166 mg/dL (70-100); HEMOGLOBIN A1c% 7.4 % (4.27-6.07)
== END 2022-07-27 08:51 | disposition home or self-care (01) ==
LOC: LAB 08:50
PROVIDERS: ATTEND Internal Medicine
DX: Z00.00 Encounter for general adult medical examination without abnormal findings (principal); J44.9 Chronic obstructive pulmonary disease, unspecified; E11.9 Type 2 diabetes mellitus without complications; K57.90 Diverticulosis of intestine, part unspecified, without perforation or abscess without bleeding; K21.9 Gastro-esophageal reflux disease without esophagitis; E78.5 Hyperlipidemia, unspecified; I10 Essential (primary) hypertension; G47.00 Insomnia, unspecified; K58.9 Irritable bowel syndrome, unspecified; R11.0 Nausea; K27.9 Peptic ulcer, site unspecified, unspecified as acute or chronic, without hemorrhage or perforation; D47.02 Systemic mastocytosis; Z86.010 Personal history of colon polyps; Z86.718 Personal history of other venous thrombosis and embolism
CPT/HCPCS: 36415; 80053; 80061; 82043; 82570; 83036; 83721; 84443; 85025

== ENCOUNTER 2022-09-11 10:05 | Outpatient (CLI) | payer BC ==
--- NOTE | 2022-09-14 10:59 | Mammography Report ---
BILATERAL DIGITAL SCREENING MAMMOGRAM 3D/2D: 09/11/2022 CLINICAL: Routine screening. Comparison is made to exams dated: 09/15/2021 mammogram, 02/09/2019 mammogram, 02/07/2018 mammogram, mammogram, and 12/04/2015 mammogram - [facility]. There are scattered areas of fibroglandular density in both breasts (category b / 25%-50% glandular t issue). There are benign calcifications in both breasts. No significant masses, calcifications, or other findings are seen in either breast. There has been no significant interval change. IMPRESSION: BENIGN There is no mammographic evidence of malignancy. A 1 year screening mammogram is recommended. Based on the Tyrer Cuzick model (a risk assessment model) the patients lifetime risk is 4.0% and her 10 year risk is 4.0%. According to the ACR, ACS, and NCCN guidelines, an annual breast MRI exam caryn g with mammogram is recommended if the patients lifetime risk is 20% or greater. This exam was interpreted at Station ID: [id number]. NOTE: For mammograms, a report in lay terms will be sent to the patient. Approximately 15% of breast malignancies will not be visualized mammographically. In the management of a palpable breast mass, a negative mammogram must not discourage biopsy of a clinically suspicious lesion. Electronically Signed By: Marino best/natacha:09/11/2022 11:59:19 letter sent: No_Letter ACR BI-RADS Category 2: Benign Finding(s) 3342F PARENCHYMAL PATTERN: (A) - The breast(s) demonstrate(s) scattered fibroglandular densities. BI-RADS CATEGORY: (2) - 2 Mammogram [id number] 1 year screening LATERALITY: (B)
== END 2022-09-11 10:06 | disposition home or self-care (01) ==
LOC: DI 10:05
PROVIDERS: ATTEND Internal Medicine
DX: Z12.31 Encounter for screening mammogram for malignant neoplasm of breast (principal)

== ENCOUNTER 2022-10-23 08:36 | Outpatient (CLI) | payer BC ==
[2022-10-23 09:17] LABS: URIC ACID 4.8 mg/dL (2.6-7.2)
[2022-10-23 09:22] LABS: CRP - C-REACTIVE PROTEIN < 1.0 mg/dL (0-1.0)
[2022-10-23 09:54] LABS: RHEUMATOID FACTOR NEGATIVE (Negative)
--- NOTE | 2022-10-23 13:06 | XRAY Report ---
PROCEDURE: Knee 3 View LT INDICATIONS: LEFT KNEE PAIN TECHNIQUE: 3 views of the left knee(s) were acquired. COMPARISON: None. FINDINGS: Bones: No fractures or dislocations. No suspicious bony lesions. Moderate to severe tricompartmen norah arthritic change most severe medially. Very minimal particular osteophytes are present without er osions Soft tissues: No knee joint effusion. No suspicious soft tissue calcifications or masses. IMPRESSION: Tricompartmental arthritic change. Reviewed by: Gabriela Cason MD on 10/23/2022 1:05 PM PDT Approved by: Gabriela Cason MD on 10/23/2022 1:05 PM PDT Station ID: [id number]
--- NOTE | 2022-10-23 13:07 | XRAY Report ---
PROCEDURE: Lumbar Spine 2 View INDICATIONS: LOW BACK PAIN TECHNIQUE: 2 views of the lumbar spine were acquired. COMPARISON: None. FINDINGS: Bones: 5 [id number] vertebrae are present. There is trace anterolisthesis of L4 on L5. Multile emily moderate to severe disc space narrowing is present most severe at L5-S1. Moderate to severe derek inal narrowing is present L1-2, L2-3 and L5-S1. Anterior osteophytes are most notable at T12 and L1. No vertebral body compression fractures. No suspicious bony lesions. Soft tissues: Overlying bowel gas pattern is normal. No suspicious soft tissue calcifications. IMPRESSION: Multilevel degenerative changes with most severe disc and foraminal narrowing at L5-S1. Reviewed by: Gabriela Cason MD on 10/23/2022 1:05 PM PDT Approved by: Gabriela Cason MD on 10/23/2022 1:05 PM PDT Station ID: [id number]
== END 2022-10-23 08:37 | disposition home or self-care (01) ==
LOC: DI 08:36
PROVIDERS: ATTEND Internal Medicine
DX: M47.816 Spondylosis without myelopathy or radiculopathy, lumbar region (principal); M48.061 Spinal stenosis, lumbar region without neurogenic claudication; M17.12 Unilateral primary osteoarthritis, left knee; E11.9 Type 2 diabetes mellitus without complications; G62.9 Polyneuropathy, unspecified; R20.0 Anesthesia of skin; Z79.899 Other long term (current) drug therapy; M25.539 Pain in unspecified wrist; M19.90 Unspecified osteoarthritis, unspecified site
CPT/HCPCS: 36415; 84550; 85651; 86140; 86200; 86430

== ENCOUNTER 2022-12-15 13:27 | Outpatient (CLI) | payer BC ==
[2022-12-15 14:26] LABS: THYROID STIMULATING HORMONE 2.9 uIU/mL (0.34-5.60)
[2022-12-15 21:27] LABS: ESTIMATED AVERAGE GLUCOSE 180 mg/dL (70-100); HEMOGLOBIN A1c% 7.9 % (4.27-6.07)
== END 2022-12-15 13:28 | disposition home or self-care (01) ==
LOC: LAB 13:27
PROVIDERS: ATTEND Internal Medicine
DX: E11.65 Type 2 diabetes mellitus with hyperglycemia (principal); T38.0X5A Adverse effect of glucocorticoids and synthetic analogues, initial encounter; R63.5 Abnormal weight gain
CPT/HCPCS: 36415; 82024; 82533; 83036; 84443

== ENCOUNTER 2024-01-24 13:36 | Outpatient (CLI) | payer BC ==
--- NOTE | 2024-01-25 07:58 | Mammography Report ---
BILATERAL DIGITAL SCREENING MAMMOGRAM 3D/2D: 01/24/2024 CLINICAL: Routine screening. Comparison is made to exams dated: 09/11/2022 mammogram, 09/15/2021 mammogram, 02/09/2019 mammogram, 02/2018 mammogram, 12/21/2016 mammogram, and 12/04/2015 mammogram - [facility]. There are scattered areas of fibroglandular density in both breasts (category b / 25%-50% glandular t issue). There are benign calcifications in both breasts. No significant masses, calcifications, or other findings are seen in either breast. There has been no significant interval change. IMPRESSION: BENIGN There is no mammographic evidence of malignancy. A 1 year screening mammogram is recommended. Based on the Tyrer Cuzick model (a risk assessment model) the patient's lifetime risk is 3.7% and her 10 year risk is 0.0%. According to the ACR, ACS, and NCCN guidelines, an annual breast MRI exam caryn g with mammogram is recommended if the patient's lifetime risk is 20% or greater. This exam was interpreted at Station ID: [id number]. NOTE: For mammograms, a report in lay terms will be sent to the patient. Approximately 15% of breast malignancies will not be visualized mammographically. In the management of a palpable breast mass, a negative mammogram must not discourage biopsy of a clinically suspicious lesion. Electronically Signed By: Naresh perez/[email or web address]:01/24/2024 15:02:10 letter sent: No_Letter ACR BI-RADS Category 2: Benign Finding(s) 3342F PARENCHYMAL PATTERN: (A) - The breast(s) demonstrate(s) scattered fibroglandular densities. BI-RADS CATEGORY: (2) - 2 RECOMMENDATION: (ANNUAL) - Recommend routine annual screening mammography. [id number] 1 year screening LATERALITY: (B)
== END 2024-01-24 13:37 | disposition home or self-care (01) ==
LOC: DI 13:36
PROVIDERS: ATTEND Internal Medicine
DX: Z12.31 Encounter for screening mammogram for malignant neoplasm of breast (principal); R92.323 Mammographic fibroglandular density, bilateral breasts